=== PATIENT | female | born 1975 | race Caucasian/White ===

== ENCOUNTER 2017-01-18 20:31 | Emergency (ER) | payer SELFPAY ==
[~2017-01-18] VITALS: Ht 165.1 cm; Wt 140.0 kg
[~2017-01-18 20:31] MED LIST: Z.0.NO CURRENT MEDS
[2017-01-18 20:34] VITALS: BP 138/84; PULSE 94; RESP 18; TEMP 98.2; O2SAT 100
[2017-01-18 22:40] VITALS: BP 119/59; PULSE 94; RESP 16; O2SAT 100
[2017-01-18] MEDS ORDERED: KETOROLAC TROMETHAMINE 30 MG/ML (IVP) VIAL IV PUSH ONE (23:15)
--- NOTE | 2017-01-18 23:41 | PD ---
HPI Chief Complaint: Musculoskeletal Complaint Time Seen by Provider: 22:22 Travel History International Travel<30 days: No Contact w/Intl Traveler<30days: No Traveled to known affect area: No History of Present Illness HPI Patient has a lower leg gluteal area pain in her left gluteal area she woke up that way today. She also has some tension in her left trapezius shoulder area. She has had problems with sciatica in the past. 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 She took nothing for the pain it continues worse with movement it's been for about 7 hours duration. No radiation localized to the left gluteal cheek and the left shoulder there not connected [facility] Past Medical History Autoimmune Disease: Yes (AUTOIMMUNE HEPATITIS) Tetanus Vaccination: Unknown Influenza Vaccination: No ?: Not LMP: 01/03/17 Dilation and Curettage (D&C): Yes Tubal Ligation: Yes Past Surgical History Cholecystectomy: Yes Tonsillectomy: Yes Social History Alcohol Use: No Tobacco Use: No Substance Use: No Allergies-Medications (Allergen,Severity, Reaction): Coded Allergies: No Known Allergies (Verified , 02/09/11) Reported Meds & Prescriptions Reported Meds & Active Scripts Active Ibuprofen 800 Mg Tab 800 Mg PO Q6HR PRN Valium (Diazepam) 2 Mg Tab 2 Mg PO TID PRN Review of Systems Except as stated in HPI: all other systems reviewed are Neg Musculoskeletal: Positive: Myalgias Neurologic: Positive: Other (focal pain in the left gluteal area) Physical Exam Narrative GENERAL: Morbidly obese lying flat on the stretcher awake alert SKIN: Warm and dry. HEAD: Atraumatic. Normocephalic. EYES: Pupils equal and round. No scleral icterus. No injection or drainage. ENT: No nasal bleeding or discharge. Mucous membranes pink and moist. NECK: Trachea midline. No JVD. CARDIOVASCULAR: Regular rate and rhythm. RESPIRATORY: No accessory muscle use. Clear to auscultation. Breath sounds equal bilaterally. GASTROINTESTINAL: Abdomen soft, non-tender, nondistended. Hepatic and splenic margins not palpable. MUSCULOSKELETAL: Extremities without clubbing, cyanosis, or edema. No obvious deformities. Patient has sciatic-like distribution in her gluteal left cheek reproducible with palpation NEUROLOGICAL: Awake and alert. No obvious cranial nerve deficits. Motor grossly within normal limits. Five out of 5 muscle strength in the arms and legs. Normal speech. PSYCHIATRIC: Appropriate mood and affect; insight and judgment normal. Data Data Last Documented VS Vital Signs Date Time Temp Pulse Resp B/P (MAP) Pulse Ox O2 Delivery O2 Flow Rate FiO2 01/19/17 00:25 01/18/17 22:40 94 16 100 Room Air 01/18/17 20:34 98.2 Orders Orders Ketorolac Inj (Toradol Inj) (01/18/17 23:15) MDM Medical Decision Making Medical Screen Exam Complete: Yes Emergency Medical Condition: Yes Differential Diagnosis Muscle spasm versus sciatic nerve versus back strain Narrative Course Patient gets much relief from Toradol and goes home with prescription for Valium and Motrin and diagnosis is going to be muscle strain Diagnosis Primary Impression: Sciatica Qualified Codes: M54.30 - Sciatica, unspecified side Patient Instructions: General Instructions Scripts Ibuprofen (Ibuprofen) 800 Mg Tab 800 MG PO Q6HR Y for PAIN, #40 TAB 0 Refills Prov: Abiel Scott MD 01/19/17 Diazepam (Valium) 2 Mg Tab 2 MG PO TID Y for MUSCLE SPASM, #15 TAB 0 Refills Prov: Abiel Scott MD 01/19/17 Disposition: 01 DISCHARGE HOME Condition: Good Abiel Scott MD Jan 18, 2017 23:41
[2017-01-19] MEDS ORDERED: IBUP1TAB7 PO (00:10)
[2017-01-19] MEDS ORDERED: DIAZ2 PO (00:10)
== END 2017-01-19 00:31 | disposition home or self-care (01) ==
LOC: NEPC 20:31
DX: M54.32 Sciatica, left side (principal); K75.4 Autoimmune hepatitis
CPT/HCPCS: 96374; 99284; J1885

== ENCOUNTER 2017-07-02 21:12 | Emergency (ER) | payer OTHER ==
[~2017-07-02] VITALS: Ht 167.6 cm; Wt 140.6 kg
[~2017-07-02 21:12] MED LIST changes: +DIAZ2 PO; +IBUP1TAB7 PO; -Z.0.NO CURRENT MEDS
[2017-07-02 21:28] VITALS: BP 143/66; PULSE 73; RESP 16; TEMP 99.1; O2SAT 98
--- NOTE | 2017-07-02 22:12 | PD ---
HPI Chief Complaint: Fall Time Seen by Provider: 21:50 Travel History International Travel<30 days: No Contact w/Intl Traveler<30days: No Traveled to known affect area: No History of Present Illness HPI Patient is a 41-year-old female who presents the emergency room for evaluation after a fall today. Patient reports that she was working outside, reports that since arriving today, she slipped on wet mulch. Patient reports that she fell forward but broke her fall with her right hand. Patient reports that she has pain to her right upper back as well as her right hand. Reports that she scraped her left knee, patient reports that she was able to ambulate after her accident without difficultly. Patient denies any trauma to her head or neck, denies any loss of consciousness, denies any vision changes. Reports mild headache today - adamantly denies trauma to head. Patient reports, "I don't think anything is broken but I just wanted to get checked out. Patient reports that she is currently not on any anticoagulants or medications. PFSH Past Medical History Autoimmune Disease: Yes (AUTOIMMUNE HEPATITIS) Diminished Hearing: No Tetanus Vaccination: Unknown Influenza Vaccination: No ?: Not LMP: 06/11/17 : 4 Para: 3 Miscarriage: 1 Dilation and Curettage (D&C): Yes Tubal Ligation: Yes Past Surgical History Cholecystectomy: Yes Tonsillectomy: Yes Social History Alcohol Use: Yes (SOCIALLY) Tobacco Use: No Substance Use: No Allergies-Medications (Allergen,Severity, Reaction): Coded Allergies: No Known Allergies (Verified Adverse Reaction, Unknown, 07/02/17) Reported Meds & Prescriptions Reported Meds & Active Scripts Active No Active Prescriptions or Reported Medications Review of Systems General / Constitutional: No: Fever Eyes: No: Visual changes HENT: Positive: Headaches, No: Neck Pain Cardiovascular: No: Chest Pain or Discomfort Respiratory: No: Shortness of Breath Gastrointestinal: No: Abdominal Pain Genitourinary: No: Dysuria Musculoskeletal: Positive: Pain (upper back pain) Skin: No Rash Neurologic: No: Weakness Psychiatric: No: Depression Endocrine: No: Polydipsia Hematologic/Lymphatic: No: Easy Bruising Physical Exam Narrative GENERAL: NAD SKIN: Focused skin assessment warm/dry. HEAD: Atraumatic. Normocephalic. EYES: Pupils equal and round. No scleral icterus. No injection or drainage. ENT: No nasal bleeding or discharge. Mucous membranes pink and moist. NECK: Trachea midline. No JVD. No midline tenderness CARDIOVASCULAR: Regular rate and rhythm. No murmur appreciated. RESPIRATORY: No accessory muscle use. Clear to auscultation. Breath sounds equal bilaterally. GASTROINTESTINAL: Abdomen soft, non-tender, nondistended. Hepatic and splenic margins not palpable. MUSCULOSKELETAL: No obvious deformities. No clubbing. No cyanosis. No edema. No midline thoracic or lumbar tenderness, patient with right upper thoracic paraspinal tenderness. RUE: patient with normal ROM to right shoulder/elbow/ wrist, no tenderness to digits of fingers, there is no scaphoid tenderness. Pulses intact, neurovascular intact LUE: normal exam LLE: patient with normal rom to left hip/knee/ankle, she does have an abrasion to her left knee RLE: normal exam NEUROLOGICAL: Awake and alert. No obvious cranial nerve deficits. Motor grossly within normal limits. Normal speech. CN 2-12 grossly intact with no neurological deficits, patient ambulating in the ER with normal gait PSYCHIATRIC: Appropriate mood and affect; insight and judgment normal. Data Data Last Documented VS Vital Signs Date Time Temp Pulse Resp B/P (MAP) Pulse Ox O2 Delivery O2 Flow Rate FiO2 07/02/17 21:28 99.1 73 16 143/66 (91) 98 [facility] Medical Decision Making Medical Screen Exam Complete: Yes Emergency Medical Condition: Yes Medical Record Reviewed: Yes Interpretation(s) Vital Signs Date Time Temp Pulse Resp B/P (MAP) Pulse Ox O2 Delivery O2 Flow Rate FiO2 07/02/17 21:28 99.1 73 16 143/66 (91) 98 Differential Diagnosis sprain, mechanical fall Narrative Course Patient is a 41-year-old female who presents the emergency room after mechanical slip and fall while at work today. Patient with no obvious injuries in the emergency room, patient with most likely muscle strain. Neuro exam was performed, patient with no obvious neurological deficits, patient with most likely muscle strain. Signs and symptoms of when to return to the ER was reviewed with patient. She will follow up with her pcp and will return to ER as needed. Diagnosis Primary Impression: Accident due to mechanical fall without injury Qualified Codes: W19.XXXA - Unspecified fall, initial encounter Patient Instructions: General Instructions Departure Forms: Tests/Procedures, Work Release Enter return to work date: Jul 04, 2017 Additional Instructions: Please follow up with your primary care doctor and return to the ER as needed Scripts No Active Prescriptions or Reported Meds Disposition: 01 DISCHARGE HOME Condition: Evie Roberson DO Jul 02, 2017 22:12
[2017-07-02] MEDS ORDERED: IBUPROFEN 600 MG TAB PO ONE (22:15)
== END 2017-07-02 22:17 | disposition home or self-care (01) ==
LOC: PHEFT 21:12
DX: M79.641 Pain in right hand (principal); S80.212A Abrasion, left knee, initial encounter; K75.4 Autoimmune hepatitis; R51 Headache; W01.0XXA Fall on same level from slipping, tripping and stumbling without subsequent striking against object, initial encounter
CPT/HCPCS: 99282

== ENCOUNTER 2017-08-29 01:10 | Emergency (ER) | payer SELFPAY ==
[~2017-08-29] VITALS: Ht 167.6 cm; Wt 138.8 kg
[2017-08-29 01:11] VITALS: BP 134/71; PULSE 63; RESP 18; TEMP 97.4; O2SAT 96
[2017-08-29] MEDS ORDERED: CYCL10TA PO (03:34)
[2017-08-29] MEDS ORDERED: TRAM50TA PO (03:34)
[2017-08-29] MEDS ORDERED: IBUP-232 PO (03:34)
--- NOTE | 2017-08-29 03:36 | PD ---
HPI Chief Complaint: Pain: Acute or Chronic Time Seen by Provider: 03:25 Travel History International Travel<30 days: No Contact w/Intl Traveler<30days: No Traveled to known affect area: No History of Present Illness HPI The patient is a 42-year-old female that complains of back pain below her right scapula for 2 days. The pain is a 10/10 and sharp pain. 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 There is no radiation of the pain. She denies any fever or cough. PFSH Past Medical History Autoimmune Disease: Yes (AUTOIMMUNE HEPATITIS) Diminished Hearing: No Tetanus Vaccination: Unknown Influenza Vaccination: No ?: Not LMP: 07-29-17 : 4 Para: 3 Miscarriage: 1 Dilation and Curettage (D&C): Yes Tubal Ligation: Yes Past Surgical History Cholecystectomy: Yes Tonsillectomy: Yes Social History Alcohol Use: Yes (SOCIALLY) Tobacco Use: No Substance Use: No Allergies-Medications (Allergen,Severity, Reaction): Coded Allergies: No Known Allergies (Verified Adverse Reaction, Unknown, 08/29/17) Reported Meds & Prescriptions Reported Meds & Active Scripts Active No Active Prescriptions or Reported Medications Review of Systems Except as stated in HPI: all other systems reviewed are Neg Physical Exam Narrative GENERAL: The patient is alert, oriented 3 in moderate apparent distress with her right back pain. Her vital signs are normal. SKIN: Focused skin assessment warm/dry. HEAD: Atraumatic. Normocephalic. EYES: Pupils equal and round. No scleral icterus. No injection or drainage. ENT: No nasal bleeding or discharge. Mucous membranes pink and moist. NECK: Trachea midline. No JVD. CARDIOVASCULAR: Regular rate and rhythm. No murmur appreciated. RESPIRATORY: No accessory muscle use. Clear to auscultation. Breath sounds equal bilaterally. GASTROINTESTINAL: Abdomen soft, non-tender, nondistended. Hepatic and splenic margins not palpable. MUSCULOSKELETAL: No obvious deformities. No clubbing. No cyanosis. No edema. The patient has a diffuse area of tenderness about 10 cm in diameter over the musculature below the right scapula. This appears to be of muscle strain. There is no rib tenderness or deformity present. NEUROLOGICAL: Awake and alert. No obvious cranial nerve deficits. Motor grossly within normal limits. Normal speech. PSYCHIATRIC: Appropriate mood and affect; insight and judgment normal. Data Data Last Documented VS Vital Signs Date Time Temp Pulse Resp B/P (MAP) Pulse Ox O2 Delivery O2 Flow Rate FiO2 08/29/17 01:11 97.4 63 18 134/71 (92) 96 MDM Medical Decision Making Medical Screen Exam Complete: Yes Emergency Medical Condition: Yes Medical Record Reviewed: Yes Differential Diagnosis Fasciitis, muscle strain, muscle spasm, fractured rib Narrative Course The patient has a muscle strain the thorax. Impression: Thoracic muscle strain Plan: The patient was given Flexeril, Motrin 600 mg 3 times a day taken regularly and tramadol. Diagnosis Primary Impression: Myofascial pain on right side Additional Instructions: A heating pad, ibuprofen taken regularly 3 times daily to establish I anti- inflammatory levels and the muscle relaxant Flexeril. Rest is also useful. Med/Other Pt SpecificInfo: Prescription(s) given Scripts Cyclobenzaprine (Flexeril) 10 Mg Tab 10 MG PO TID for Muscle Spasm, #30 TAB 0 Refills Prov: Clinton Gabriel MD 08/29/17 Tramadol (Tramadol) 50 Mg Tab 50 MG PO Q6H Y for PAIN, #20 TAB 0 Refills Prov: Clinton Gabriel MD 08/29/17 Ibuprofen (Ibuprofen) 600 Mg Tab 600 MG PO TID, #33 TAB 0 Refills Prov: Clinton Gabriel MD 08/29/17 Disposition: 01 DISCHARGE HOME Condition: Stable Clinton Gabriel MD Aug 29, 2017 03:36
[2017-08-29] MEDS ORDERED: ORPHENADRINE INJ 60 MG/2 ML AMP IM ONE (03:45)
[2017-08-29] MEDS ORDERED: KETOROLAC TROMETHAMINE 60 MG/2 ML (IM) VIAL IM ONE (03:45)
== END 2017-08-29 03:56 | disposition home or self-care (01) ==
LOC: PHED 01:10
DX: M79.1 Myalgia (principal)
CPT/HCPCS: 96372; 99283; J1885; J2360

== ENCOUNTER 2017-08-29 23:40 | Observation (INO) | payer SELFPAY ==
[~2017-08-29] VITALS: Ht 167.6 cm; Wt 137.5 kg
[~2017-08-29 23:40] MED LIST changes: +CYCL10TA PO; -DIAZ2 PO; +IBUP-232 PO; -IBUP1TAB7 PO; +TRAM50TA PO
[2017-08-29 23:47] VITALS: BP 148/68; PULSE 64; RESP 16; TEMP 97.9; O2SAT 100
[2017-08-30] VITALS (9 sets, daily range): BP systolic 106–149; BP diastolic 53–85; PULSE 55–80; RESP 16–20; TEMP 97.8–98.3; O2SAT 98–100
--- NOTE | 2017-08-30 00:49 | PD ---
HPI Chief Complaint: Flank/Kidney Pain Time Seen by Provider: 00:45 Travel History International Travel<30 days: No Contact w/Intl Traveler<30days: No Traveled to known affect area: No History of Present Illness HPI Patient complains of left back and flank pain since Sunday, also complains of pain with urination/dysuria, also has positive frequency/urgency/hematuria rates the flank pain is 10 out of 10, nonradiating . Denies alleviating or aggravating factors. Denies any associated factors such as fever, rash, neck pain, meningismus, headache, nausea vomiting or diarrhea. No known drug allergy Past medical history significant for tonsillectomy, corrective lens use, cholecystectomy, tubal ligation, D&C, autoimmune hepatitis PFSH Past Medical History Medical History: Denies Significant Hx Autoimmune Disease: Yes (AUTOIMMUNE HEPATITIS) Diminished Hearing: No Immunizations Current: Yes ?: Not LMP: 07/21/17 : 4 Para: 3 Miscarriage: 1 Dilation and Curettage (D&C): Yes Tubal Ligation: Yes Past Surgical History Cholecystectomy: Yes Tonsillectomy: Yes Social History Alcohol Use: Yes (SOCIALLY) Tobacco Use: No Substance Use: No Allergies-Medications (Allergen,Severity, Reaction): Coded Allergies: No Known Allergies (Verified Adverse Reaction, Unknown, 08/29/17) Reported Meds & Prescriptions Reported Meds & Active Scripts Active Flexeril (Cyclobenzaprine HCl) 10 Mg Tab 10 Mg PO TID Tramadol (Tramadol HCl) 50 Mg Tab 50 Mg PO Q6H PRN Ibuprofen 600 Mg Tab 600 Mg PO TID Review of Systems General / Constitutional: No: Fever Eyes: No: Visual changes HENT: No: Headaches Cardiovascular: No: Chest Pain or Discomfort Respiratory: No: Shortness of Breath Gastrointestinal: No: Abdominal Pain Genitourinary: Positive: Frequency, Dysuria, Flank Pain Musculoskeletal: No: Pain Skin: No Rash Neurologic: No: Weakness Psychiatric: No: Depression Endocrine: No: Polydipsia Hematologic/Lymphatic: No: Easy Bruising Physical Exam Narrative GENERAL: SKIN: Warm and dry. HEAD: Atraumatic. Normocephalic. EYES: Pupils equal and round. No scleral icterus. No injection or drainage. ENT: No nasal bleeding or discharge. Mucous membranes pink and moist. NECK: Trachea midline. No JVD. CARDIOVASCULAR: Regular rate and rhythm. RESPIRATORY: No accessory muscle use. Clear to auscultation. Breath sounds equal bilaterally. GASTROINTESTINAL: Abdomen soft, non-tender, nondistended. Left lower quadrant tenderness to palpation MUSCULOSKELETAL: Extremities without clubbing, cyanosis, or edema. No obvious deformities. NEUROLOGICAL: Awake and alert. No obvious cranial nerve deficits. Motor grossly within normal limits. Five out of 5 muscle strength in the arms and legs. Normal speech. PSYCHIATRIC: Appropriate mood and affect; insight and judgment normal. Data Data Last Documented VS Vital Signs Date Time Temp Pulse Resp B/P (MAP) Pulse Ox O2 Delivery O2 Flow Rate FiO2 08/30/17 02:26 16 08/30/17 00:33 80 133/68 (89) 98 Room Air 08/29/17 23:47 97.9 Orders Orders Complete Blood Count With Diff (08/30/17 01:09) Comprehensive Metabolic Panel (08/30/17 01:09) Urinalysis - C+S If Indicated (08/30/17 01:09) Ed Urine Pregnancytest Poc (08/30/17 01:09) Ct Abd/Pel W/O Iv Contrast (08/30/17 01:09) Ecg Monitoring (08/30/17 01:09) Iv Access Insert/Monitor (08/30/17 01:09) Ketorolac Inj (Toradol Inj) (08/30/17 01:15) Sodium Chloride 0.9% Flush (Ns Flush) (08/30/17 01:15) Sodium Chlor 0.9% 1000 Ml Inj (Ns 1000 M (08/30/17 01:09) Lipase (08/30/17 01:09) Urine Culture (08/30/17 01:45) Morphine Inj (Morphine Inj) (08/30/17 02:45) Ceftriaxone Inj (Rocephin Inj) (08/30/17 02:45) Place In Observation (08/30/17 ) Vital Signs (Adult) Q4H (08/30/17 03:01) Activity Oob Ad Genesis (08/30/17 03:01) Intake + Output MAGDIEL.QSHIFT (08/30/17 03:01) Diet Heart Healthy (08/30/17 Breakfast) Sodium Chlor 0.9% 1000 Ml Inj (Ns 1000 M (08/30/17 03:01) Sodium Chloride 0.9% Flush (Ns Flush) (08/30/17 03:15) Sodium Chloride 0.9% Flush (Ns Flush) (08/30/17 09:00) Acetaminophen (Tylenol) (08/30/17 03:15) Basic Metabolic Panel (Bmp) (08/31/17 06:00) Complete Blood Count With Diff (08/31/17 06:00) Case Management Consult (08/30/17 03:01) Scd Bilateral/Knee High MAGDIEL.BID (08/30/17 03:01) Naloxone Inj (Narcan Inj) (08/30/17 03:15) Ceftriaxone Inj (Rocephin Inj) (08/31/17 03:00) Morphine Inj (Morphine Inj) (08/30/17 03:15) Consult Medical Oncology (08/30/17 ) Admit Order (Ed Use Only) (08/30/17 03:17) Iron/Tibc Profile (08/30/17 01:20) Labs Laboratory Tests Test 08/30/17 01:20 08/30/17 01:45 White Blood Count 7.5 TH/MM3 Red Blood Count 4.38 MIL/MM3 Hemoglobin 8.8 GM/DL Hematocrit 28.8 % Mean Corpuscular Volume 65.8 FL Mean Corpuscular Hemoglobin 20.2 PG Mean Corpuscular Hemoglobin Concent 30.7 % Red Cell Distribution Width 20.6 % Platelet Count 321 TH/MM3 Mean Platelet Volume 7.1 FL Neutrophils (%) (Auto) 65.4 % Lymphocytes (%) (Auto) 23.9 % Monocytes (%) (Auto) 6.7 % Eosinophils (%) (Auto) 3.7 % Basophils (%) (Auto) 0.3 % Neutrophils # (Auto) 4.9 TH/MM3 Lymphocytes # (Auto) 1.8 TH/MM3 Monocytes # (Auto) 0.5 TH/MM3 Eosinophils # (Auto) 0.3 TH/MM3 Basophils # (Auto) 0.0 TH/MM3 CBC Comment DIFF FINAL Differential Comment Blood Urea Nitrogen 12 MG/DL Creatinine 0.53 MG/DL Random Glucose 102 MG/DL Total Protein 6.5 GM/DL Albumin 3.1 GM/DL Calcium Level 8.4 MG/DL Alkaline Phosphatase 85 U/L Aspartate Amino Transf (AST/SGOT) 10 U/L Alanine Aminotransferase (ALT/SGPT) 11 U/L Total Bilirubin 0.2 MG/DL Sodium Level 142 MEQ/L Potassium Level 3.7 MEQ/L Chloride Level 108 MEQ/L Carbon Dioxide Level 26.5 MEQ/L Anion Gap 8 MEQ/L Estimat Glomerular Filtration Rate 127 ML/MIN Iron Level 22 MCG/DL Total Iron Binding Capacity 339 MCG/DL Percent Iron Saturation 6.5 % Ferritin 7 NG/ML Lipase 89 U/L Vitamin B12 Level 237 PG/ML Urine Color YELLOW Urine Turbidity HAZY Urine pH 6.0 Urine Specific [place] 1.020 Urine Protein NEG mg/dL Urine Glucose (UA) NEG mg/dL Urine Ketones NEG mg/dL Urine Occult Blood SMALL Urine Nitrite NEG Urine Bilirubin NEG Urine Urobilinogen LESS THAN 2 mg/dL Urine Leukocyte Esterase SMALL Urine RBC 1 /hpf Urine WBC 8 /hpf Urine Squamous Epithelial Cells 7 /hpf Urine Bacteria FEW /hpf Urine Mucus FEW /lpf Microscopic Urinalysis Comment CULTURE INDICATED MDM Medical Decision Making Medical Screen Exam Complete: Yes Emergency Medical Condition: Yes Medical Record Reviewed: Yes Differential Diagnosis Pyelonephritis versus UTI versus a sending cystitis versus ureterolithiasis Narrative Course CBC shows no leukocytosis, no left shift, platelet count 321,000, anemia of 8.8/ 28.8 microcytic UA significant for UTI Electrolytes are all within normal limits, normal kidney liver and pancreatic functions. CT abdomen and pelvis read by radiologist as a 8.8 x 7.8 cm multiloculated cystic mass that he believes is arising along the left ovary with a differential including ovarian cystadenoma. There is also a small stone on the lower pole of the left kidney, status post cholecystectomy otherwise unremarkable CT abdomen and pelvis patient made aware of the possible malignancy and the need for admission. Diagnosis Primary Impression: UTI Additional Impressions: Suspicious left ovarian mass Anemia Admitting Information Admitting Physician Requests: Observation Scripts Ferrous Sulfate (Ferrous Sulfate) 325 Mg (65 Mg Iron) Tablet 325 MG PO BIDPC for Nutritional Supplement, #60 TAB 0 Refills Prov: Judy Branham MD 08/31/17 Ciprofloxacin (Cipro) 500 Mg Tab 500 MG PO BID for Infection for 6 Days, #12 TAB 0 Refills Prov: Judy Branham MD 08/31/17 Hydrocodone-Acetaminophen ([place]) 5 Mg-325 Mg Tab 1 TAB PO Q6H Y for PAIN, #12 TAB 0 Refills Prov: Judy Branham MD 08/31/17 Elmer Castillo MD Aug 30, 2017 00:49
[2017-08-30] MEDS ORDERED: SODIUM CHLOR 0.9% 1000 ML INJ 1,000 ML IV ONE (01:09)
[2017-08-30] MEDS ORDERED: SODIUM CHLORIDE 0.9% FLUSH 10 ML FLUSH IVF PRN (01:15)
[2017-08-30] MEDS ORDERED: KETOROLAC TROMETHAMINE 30 MG/ML (IVP) VIAL IV PUSH ONE (01:15)
[2017-08-30 01:27] LABS: AUTOMATED NEUTROPHIL # 4.9 TH/MM3 (1.8-7.7); BASOPHIL % 0.3 % (0.0-2.0); EOSINOPHIL # 0.3 TH/MM3 (0-0.4); EOSINOPHIL % 3.7 % (0.0-4.0); HEMATOCRIT 28.8 % (35.0-46.0); HEMOGLOBIN 8.8 GM/DL (11.6-15.3); LYMPH % 23.9 % (9.0-44.0); LYMPHOCYTE # 1.8 TH/MM3 (1.0-4.8); MEAN CELL VOLUME 65.8 FL (80.0-100.0); MEAN CORPUSCULAR HEMOGLOBIN 20.2 PG (27.0-34.0); MEAN CORPUSCULAR HGB CONC 30.7 % (32.0-36.0); MEAN PLATELET VOLUME 7.1 FL (7.0-11.0); MONO % 6.7 % (0.0-8.0); MONOCYTE # 0.5 TH/MM3 (0-0.9); NEUT % 65.4 % (16.0-70.0); PLATELET COUNT 321 TH/MM3 (150-450); RED BLOOD COUNT 4.38 MIL/MM3 (4.00-5.30); RED CELL DISTRIBUTION WIDTH 20.6 % (11.6-17.2); WHITE BLOOD COUNT 7.5 TH/MM3 (4.0-11.0)
--- NOTE | 2017-08-30 01:59 | RADRPT ---
EXAM DATE: 08/30/2017 1:52 AM EDT AGE/SEX: 42 years / Female INDICATIONS: Left flank pain. CLINICAL DATA: This is the patient's initial encounter. Patient reports that signs and symptoms have been present for 1 day and indicates a pain score of 3/10. MEDICAL/SURGICAL HISTORY: None. Tubal ligation. Cholecystectomy. RADIATION DOSE: 32.27 CTDI (mGy) COMPARISON: No prior exams available for comparison. TECHNIQUE: Multiple contiguous axial images were obtained through the abdomen. Images were obtained using multiple row detector helical technique. Using automated exposure control and adjustment of the mA and/or kV according to patient size, radiation dose was kept as low as reasonably achievable to o btain optimal diagnostic quality images. DICOM format image data is available electronically for rev iew and comparison. FINDINGS: Lower Lungs: The visualized lower lungs are clear. Liver: The liver has a homogeneous density without space-occupying lesion. There is no dilation of th e biliary tree. Cholecystectomy clips Spleen: Homogeneous density without enlargement. Pancreas: Unremarkable without mass or calcification. Kidneys: Normal in size and shape. No evidence of mass or hydronephrosis. Small calcification lower pole left kidney. Adrenal Glands: Unremarkable. Aorta: The aorta and proximal iliac vessels are grossly unremarkable without aneurysmal dilation. Bowel/Mesentery: The bowel loops are grossly unremarkable. The cecum and sigmoid colon have a normal configuration. Abdominal Wall: Intact. Retroperitoneum: No evidence of adenopathy in the retrocrural, para-aortic, or deep pelvic regions. Bladder: Contours are smooth. Reproductive Organs: 8.8 x 7.8 cm multiloculated cystic mass I believe arising along the left ovary. Differential includes ovarian cystadenoma. Inguinal: The inguinal region is unremarkable without evidence of adenopathy. Bony Structures: Unremarkable. CONCLUSION: 1. 8.8 x 7.8 cm multiloculated cystic mass in the anterior (I suspect arising from the left. Potenti al includes ovarian cystadenoma versus cystadenocarcinoma. 2. Small stone lower pole left kidney. 3. Status post cholecystectomy otherwise unremarkable CT abdomen and pelvis Electronically signed by: Abhishek Valencia MD 08/30/2017 1:57 AM EDT
[2017-08-30 02:00] LABS: ALBUMIN 3.1 GM/DL (3.4-5.0); ALT (GPT) 11 U/L (10-53); AST (GOT) 10 U/L (15-37); BICARBONATE 26.5 MEQ/L (21.0-32.0); BLOOD UREA NITROGEN 12 MG/DL (7-18); CALCIUM 8.4 MG/DL (8.5-10.1); CHLORIDE 108 MEQ/L (98-107); CREATININE 0.53 MG/DL (0.50-1.00); GLOMERULAR FILTRATION RATE 127 ML/MIN (>89); GLUCOSE,RANDOM 102 MG/DL (74-106); SODIUM (NA) 142 MEQ/L (136-145)
[2017-08-30 02:02] LABS: ALKALINE PHOSPHATASE 85 U/L (45-117); TOTAL BILIRUBIN ADULT 0.2 MG/DL (0.2-1.0); TOTAL PROTEIN 6.5 GM/DL (6.4-8.2)
[2017-08-30 02:04] LABS: BACTERIA, URINE FEW /hpf; BILIRUBIN, URINE NEG (NEG); BLOOD, URINE SMALL (NEG); GLUCOSE,URINE NEG (NEG); KETONE, URINE NEG (NEG); MUCUS URINE FEW /lpf (OCC); NITRITE,URINE NEG (NEG); SQUAMOUS EPITHELIAL CELL URINE 7 /hpf (0-5); URINE COLOR YELLOW (YELLW/STRAW); URINE LEUKOCYTE ESTERASE SMALL (NEG)
[2017-08-30] MEDS ORDERED: MORPHINE SULFATE 4 MG/ML INJ IV PUSH ONE (02:45)
[2017-08-30] MEDS ORDERED: cefTRIAXone INJ 1,000 MG in SODIUM CHLORIDE 0.9% INJ 100 ML IV ONE (02:45)
[2017-08-30] MEDS: SODIUM CHLOR 0.9% 1000 ML INJ 1,000 ML IV SCH ×2 (03:01→13:06)
[2017-08-30] MEDS ORDERED: SODIUM CHLORIDE 0.9% FLUSH 10 ML FLUSH IV FLUSH PRN (03:15)
[2017-08-30] MEDS ORDERED: MORPHINE SULFATE 4 MG/ML INJ IV PUSH PRN (03:15)
[2017-08-30] MEDS ORDERED: NALOXONE HCL 0.4 MG/ML AMP IV PUSH PRN (03:15)
--- NOTE | 2017-08-30 03:55 | HHI.HP ---
[facility] No Primary Care Physician Admission Diagnosis LEFT OVARIAN MASS, UTI Diagnoses: Travel History International Travel<30 Days: No Contact w/Intl Traveler <30 Da: No Traveled to Known Affected Are: No History of Present Illness 42-year-old female with no significant past medical history presents the emergency department for evaluation of right-sided flank pain that radiates around to her chest. She denies any dysuria including pain with urination and urinary frequency. No fever/chills. No chest pain or shortness of breath. No abdominal pain. No nausea/vomiting/diarrhea. Review of Systems Except as stated in HPI: all other systems reviewed are Neg Past Family Social History Past Medical History None Past Surgical History Tonsillectomy Cholecystectomy D&C Bilateral tubal ligation Reported Medications Reported Meds & Active Scripts Active Flexeril (Cyclobenzaprine HCl) 10 Mg Tab 10 Mg PO TID Tramadol (Tramadol HCl) 50 Mg Tab 50 Mg PO Q6H PRN Ibuprofen 600 Mg Tab 600 Mg PO TID Allergies: Coded Allergies: No Known Allergies (Verified Adverse Reaction, Unknown, 08/29/17) Family History Father with diabetes mellitus Social History Occasional alcohol. Denies tobacco and illicit drugs Physical Exam Vital Signs Vital Signs Date Time Temp Pulse Resp B/P (MAP) Pulse Ox O2 Delivery O2 Flow Rate FiO2 08/30/17 02:26 16 08/30/17 00:33 80 20 133/68 (89) 98 Room Air 08/29/17 23:47 97.9 64 16 148/68 (94) 100 Physical Exam GENERAL: Obese, female lying in bed SKIN: No rashes, ecchymoses or lesions. Cool and dry. HEAD: Atraumatic. Normocephalic. No temporal or scalp tenderness. EYES: Pupils equal round and reactive. Extraocular motions intact. No scleral icterus. No injection or drainage. ENT: Nose without bleeding, purulent drainage or septal hematoma. Throat without erythema, tonsillar hypertrophy or exudate. Uvula midline. Airway patent. NECK: Trachea midline. No JVD or lymphadenopathy. Supple, nontender, no meningeal signs. CARDIOVASCULAR: Regular rate and rhythm without murmurs, gallops, or rubs. RESPIRATORY: Clear to auscultation. Breath sounds equal bilaterally. No wheezes , rales, or rhonchi. GASTROINTESTINAL: Abdomen soft, non-tender, nondistended. No hepato-splenomegaly , or palpable masses. No guarding. : No CVA tenderness MUSCULOSKELETAL: Extremities without clubbing, cyanosis, or edema. No joint tenderness, effusion, or edema noted. No calf tenderness. NEUROLOGICAL: Awake and alert. Cranial nerves II through XII intact. Motor and sensory grossly within normal limits. Normal speech. Laboratory Laboratory Tests Test 08/30/17 01:20 08/30/17 01:45 White Blood Count 7.5 Red Blood Count 4.38 Hemoglobin 8.8 Hematocrit 28.8 Mean Corpuscular Volume 65.8 Mean Corpuscular Hemoglobin 20.2 Mean Corpuscular Hemoglobin Concent 30.7 Red Cell Distribution Width 20.6 Platelet Count 321 Mean Platelet Volume 7.1 Neutrophils (%) (Auto) 65.4 Lymphocytes (%) (Auto) 23.9 Monocytes (%) (Auto) 6.7 Eosinophils (%) (Auto) 3.7 Basophils (%) (Auto) 0.3 Neutrophils # (Auto) 4.9 Lymphocytes # (Auto) 1.8 Monocytes # (Auto) 0.5 Eosinophils # (Auto) 0.3 Basophils # (Auto) 0.0 CBC Comment DIFF FINAL Differential Comment Blood Urea Nitrogen 12 Creatinine 0.53 Random Glucose 102 Total Protein 6.5 Albumin 3.1 Calcium Level 8.4 Alkaline Phosphatase 85 Aspartate Amino Transf (AST/SGOT) 10 Alanine Aminotransferase (ALT/SGPT) 11 Total Bilirubin 0.2 Sodium Level 142 Potassium Level 3.7 Chloride Level 108 Carbon Dioxide Level 26.5 Anion Gap 8 Estimat Glomerular Filtration Rate 127 Lipase 89 Urine Color YELLOW Urine Turbidity HAZY Urine pH 6.0 Urine Specific [place] 1.020 Urine Protein NEG Urine Glucose (UA) NEG Urine Ketones NEG Urine Occult Blood SMALL Urine Nitrite NEG Urine Bilirubin NEG Urine Urobilinogen LESS THAN 2 Urine Leukocyte Esterase SMALL Urine RBC 1 Urine WBC 8 Urine Squamous Epithelial Cells 7 Urine Bacteria FEW Urine Mucus FEW Microscopic Urinalysis Comment CULTURE INDICATED Date/Time Source Procedure Growth Status 08/30/17 01:45 Urine Random Urine Urine Culture Pending Received Result Diagram: 08/30/17 0120 08/30/17 0120 Caprini VTE Risk Assessment Caprini VTE Risk Assessment: Mod/High Risk (score >= 2) Caprini Risk Assessment Model Point Value = 1 Point Value = 2 Point Value = 3 Point Value = 5 Age 41-60 Minor surgery BMI > 25 kg/m2 Swollen legs Varicose veins or History of unexplained or recurrent spontaneous Oral contraceptives or hormone replacement Sepsis (< 1 month) Serious lung disease, including pneumonia (< 1 month) Abnormal pulmonary function Acute myocardial infarction Congestive heart failure (< 1 month) History of inflammatory bowel disease Medical patient at bed rest Age 61-74 Arthroscopic surgery Major open surgery (> 45 min) Laparoscopic surgery (> 45 min) Malignancy Confined to bed (> 72 hours) Immobilizing plaster cast Central venous access Age >= 75 History of VTE Family history of VTE Factor V Leiden Prothrombin [id number] Lupus anticoagulant Anticardiolipin antibodies Elevated serum homocysteine Heparin-induced thrombocytopenia Other congenital or acquired thrombophilia Stroke (< 1 month) Elective arthroplasty Hip, pelvis, or leg fracture Acute spinal cord injury (< 1 month) Prophylaxis Regimen Total Risk Factor Score Risk Level Prophylaxis Regimen 0-1 Low Early ambulation 2 Moderate Order ONE of the following: *Sequential Compression Device (SCD) *Heparin 5000 units SQ BID 3-4 Higher Order ONE of the following medications: *Heparin 5000 units SQ TID *Enoxaparin/Lovenox 40 mg SQ daily (WT < 150 kg, CrCl > 30 mL/min) *Enoxaparin/Lovenox 30 mg SQ daily (WT < 150 kg, CrCl > 10-29 mL/min) *Enoxaparin/Lovenox 30 mg SQ BID (WT < 150 kg, CrCl > 30 mL/min) AND/OR *Sequential Compression Device (SCD) 5 or more Highest Order ONE of the following medications: *Heparin 5000 units SQ TID (Preferred with Epidurals) *Enoxaparin/Lovenox 40 mg SQ daily (WT < 150 kg, CrCl > 30 mL/min) *Enoxaparin/Lovenox 30 mg SQ daily (WT < 150 kg, CrCl > 10-29 mL/min) *Enoxaparin/Lovenox 30 mg SQ BID (WT < 150 kg, CrCl > 30 mL/min) AND *Sequential Compression Device (SCD) Assessment and Plan Assessment and Plan Assessment/plan: 1. Pelvic mass CT of the abdomen and pelvis significant for an 8 x 7 cm multiloculated cystic mass likely arising from the left ovary Differential diagnosis includes ovarian cystadenoma versus cystadenocarcinoma Medical oncology consulted, appreciate recommendations Case management consulted as patient has no insurance and will need close follow -up 2. Urinary tract infection UA consistent with UTI Urine culture pending Rocephin 3. Anemia Unclear etiology Monitor CBC Iron studies pending FEN Heart healthy diet Electrolytes: Monitor and replete as needed Heparin Evie Dougherty MD Aug 30, 2017 03:55
[2017-08-30 04:07] LABS: % SATURATION IRON PROFILE 6.5 % (20-50); IRON (FE) 22 MCG/DL (50-170); TOTAL IRON BINDING CAPACITY 339 MCG/DL (250-450)
[2017-08-30] MEDS: HEPARIN SODIUM - SQ 10,000 UNITS/ML VIAL SQ SCH ×3 (06:00→21:56)
[2017-08-30] MEDS: MORPHINE SULFATE 4 MG/ML INJ IV PUSH PRN ×5 (06:16→23:55)
[2017-08-30] MEDS: ACETAMINOPHEN 325 MG TAB PO PRN ×2 (06:17→17:21)
[2017-08-30] MEDS: SODIUM CHLORIDE 0.9% FLUSH 10 ML FLUSH IV FLUSH SCH ×2 (08:31→20:11)
--- NOTE | 2017-08-30 14:01 | HHI.PR ---
Addendum to Inpatient Note Addendum Reason: Additional Documentation Additional Information Pt reports her own mother has a hx of thyroid CA. Pt says currently she is pain free. Awaiting oncology consultation. sitting up in bed, NAD. ordering transvaginal US for better picture of left ovarian mass. Ordering gynecology consult. Ordering venofer. Jorge Leon MD Aug 30, 2017 14:01
[2017-08-30] MEDS: IRON SUCROSE INJ 100 MG in SODIUM CHLORIDE 0.9% INJ 100 ML IV SCH (17:15)
--- NOTE | 2017-08-30 18:15 | MB ---
cc: Lesli Holland MD,Evie Flores MD DATE: 08/30/2017 REFERRING PHYSICIAN: Dr. Evie Dougherty. CHIEF COMPLAINT: Dr. Dougherty requested consultation for Rosibel Sanchez regarding iron deficiency anemia associated with a multiloculated cystic mass in the anterior left ovary. HISTORY OF PRESENT ILLNESS: Ms. Sanchez is a 42-year-old woman previously from [place]. She has 2 adult children, ages 19 and 24 and a 16-year-old living with the boys father in [place]. She is down here living with her best friend and her best friend's daughter. She has a boyfriend in the area. She is now a resident of [facility]. She has a history of menorrhagia over the last 3 years. She described menses lasting 7-8 days. Her last menses began on 08/21/2017 and ended 08/29/2017. Her heaviest days are approximately 4 days where she is using a pad and a tampon together. She denies any history of bleeding disorder. She denies any other bleeding, nosebleeds, gum bleeding, or bruising. She has no family history of bleeding. She presented to the emergency room on 08/30/2017 with left back and flank pain. This is temporally related to her menses. She denies any fevers, chills or night sweats. She denies any headaches. She was found to have significant anemia, with hemoglobin 8.8. Her previous hemoglobin from 2010 was 12.1. She had a microcytic anemia. White cell count and platelet count are normal. Her renal function is normal. Iron studies were performed that are consistent with iron deficiency with a percent saturation of 6.5. The liver functions were normal. Because of the back and flank pain, imaging study was performed. CT scan of the abdomen and pelvis that showed an 8.8 x 7.8 cm multiloculated cystic mass in the anterior. There is consideration for ovarian cyst adenoma versus cyst adenocarcinoma. She has a small renal stone on the left. Otherwise, a CT scan is unremarkable. Because of the left ovarian mass, hematology/oncology is consulted. [facility] has been consulted as well to evaluate for the menorrhagia. Vaginal ultrasound has been requested. In light of her iron deficiency, she is being treated with parenteral iron therapy at the time of the consultation. She was tolerating it well. She does not have any insurance at present. She has not seen a [facility] doctor for many years. PAST MEDICAL HISTORY: 1. Left ovarian cystic mass. 2. Microcytic anemia. 3. Iron deficiency. 4. Obesity. PAST SURGICAL HISTORY: 1. Tonsillectomy. 2. Cholecystectomy. 3. D and C procedure. 4. Bilateral tubal ligation. FAMILY HISTORY: Father had diabetes. Mother had thyroid cancer. She does not speak to her mother at present. SOCIAL HISTORY: She lives with her best friend. She denies any tobacco, alcohol or illicit drug use. ALLERGIES: NO KNOWN DRUG ALLERGIES. CURRENT MEDICATIONS: Ceftriaxone, iron sucrose, morphine sulfate p.r.n., heparin, acetaminophen. PHYSICAL EXAMINATION: VITAL SIGNS: Temperature 98.0, heart rate 76, respiratory rate 16, blood pressure 120/71, saturation 98%. GENERAL: Ms. Sanchez is a well-developed, obese young woman, who looks her stated age. HEENT: Pupils are round, reactive to light and accommodation. Oropharynx is clear. NECK: Supple. LUNGS: Clear to auscultation. CARDIOVASCULAR: Reveals a normal rate and rhythm. ABDOMEN: Large but benign. LOWER EXTREMITIES: With no edema. NEUROLOGIC: Nonfocal. LABORATORY DATA: As described above. IMAGING STUDIES: As described above. ASSESSMENT AND PLAN: Ms. Sanchez is a 42-year-old woman with menorrhagia, presenting with abdominal pain, findings of a left ovarian multiloculated cystic mass. This is concerning for an ovarian cystadenoma versus cyst adenocarcinoma. We discussed the risks and benefits of biopsy to determine the etiology of the above. Pending result of underlying malignancy, she will be referred to Gynecologic Oncology. There are no other signs of disease. In the meantime [facility] [facility] Oncology is consulted for menorrhagia. She has evidence of iron deficiency. A ferritin will be checked. I concur with parenteral iron therapy. There is no other family history of cancer other than a mother with thyroid cancer. There is no other information regarding mother's malignancy. She is offered followup at [facility] once discharged. Anticipate, she will be discharged after the CT-guided biopsy to review the pathology once it is available next week. I will give her information regarding followup and new patient referral number. Her CA-125 will be checked. Beta hCG will be checked. It is unlikely that she is , given that she just completed her menses. Stool Hemoccult will be performed to rule out gastrointestinal loss of iron, although this seems unlikely. The source of iron is suspected from the menorrhagia. She read inaccurately that ibuprofen helps with menorrhagia. She has been taking ibuprofen with her cycles. This likely contributes to the loss of blood from her menses. She will be offered a proton pump inhibitor given her chronic use of ibuprofen. MD ANTELMO Damian/KRISTAL , 05:24 PM , 06:13 PM
[2017-08-30] MEDS: PANTOPRAZOLE SOD 20 MG DELAYED RELEASE TAB PO SCH (18:45)
--- NOTE | 2017-08-30 20:30 | PD.CONS ---
HPI Chief Complaint Upper right back pain radiating to the chest Date Seen: Aug 30, 2017 Time Seen: 20:10 Travel History International Travel<30 Days: No Contact w/Intl Traveler<30Days: No Known Affected Area: No History of Present Illness HPI Patient is a 42-year-old A1 with LMP the end of July presents with right sided back pain in the upper back radiating to the chest, she describes as a sharp stabbing pain is been going on for 4 or 5 days, she denies abdominal pain pelvic pain, abnormal bleeding or discharge, she has had a tubal ligation in the past for control she had a CT scan on admission which shows an 8 x 7 cm cystic mass with a septation in the anterior pelvis she had no idea that that was present. She has had no history of gynecologic problems other than when she lost a at approximately 5 months and had to have a D&C with that. Para: 3 : 4 Last Menstrual Period: August 06, 2017 Miscarriage: 1 History Obstetric History Obstetric History 3 vaginal deliveries at term 1 lost approximately 5 months requiring a D&C Past Surgical History Narrative Surgical D&C Cholecystectomy Social History Alcohol Use: No Tobacco Use: No Substance Abuse: No Allergies-Medications (Allergen,Severity, Reaction): Coded Allergies: No Known Allergies (Verified Adverse Reaction, Unknown, 08/29/17) Home Meds Active Scripts Cyclobenzaprine (Flexeril) 10 Mg Tab, 10 MG PO TID for Muscle Spasm, #30 TAB 0 Refills Prov:Clinton Gabriel MD 08/29/17 Tramadol (Tramadol) 50 Mg Tab, 50 MG PO Q6H Y for PAIN, #20 TAB 0 Refills Prov:Clinton Gabriel MD 08/29/17 Ibuprofen (Ibuprofen) 600 Mg Tab, 600 MG PO TID, #33 TAB 0 Refills Prov:Clinton Gabriel MD 08/29/17 Review of Systems General / Constitutional: No: Fever, Weight Gain, Chills, Other Eyes: No: Diploplia, Blurred Vision, Visual changes, Pain, Photophobia HENT: No: Headaches, Vertigo, Lightheadedness Cardiovascular: No: Irregular Rhythm, Chest Pain or Discomfort, Palpitations, Tachycardia, Syncope, Varicosities, Edema, Cyanosis Respiratory: No: Cough, Short of Breath, Other Gastrointestinal: No: Nausea, Vomiting, Diarrhea Genitourinary: No: Decreased Urinary Output, Oliguria Musculoskeletal: Other, No: Limited ROM, Weakness, Cramping, Edema, Pain Skin: No Rash, No Itching, No Dryness, No Lumps, No Change in Pigmentation, No Change in Nails, No Alopecia, No Lesions Neurologic: No: Weakness, Dizziness, Syncope, Focal Abnormalities, Coordination Problem, Headache, Slurred Speech, Seizures Psychiatric: No: Depression, Suicidal Ideations, Homicidal Ideation Endocrine: No: Heat Intolerance, Cold Intolerance, Polydipsia, Polyuria, Other Physical Exam Vital Signs Date Time Temp Pulse Resp B/P (MAP) Pulse Ox O2 Delivery O2 Flow Rate FiO2 08/30/17 18:21 18 08/30/17 16:00 98.1 69 18 149/85 (106) 99 08/30/17 15:36 18 08/30/17 14:26 98.0 861 16 120/71 (87) 98 08/30/17 13:00 98.1 76 17 130/71 (90) 99 Room Air 08/30/17 11:00 97.9 68 16 124/68 (86) Room Air 08/30/17 09:30 98.0 72 17 108/67 (81) 99 Room Air 08/30/17 07:30 97.8 60 17 118/66 (83) 99 Room Air 08/30/17 07:30 17 08/30/17 07:30 60 17 08/30/17 06:08 55 20 106/53 (70) 100 Room Air 08/30/17 02:26 16 08/30/17 00:33 80 20 133/68 (89) 98 Room Air 08/29/17 23:47 97.9 64 16 148/68 (94) 100 Narrative GENERAL: Well-nourished, obese patient. SKIN: Warm and dry. HEAD: Normocephalic and atraumatic. EYES: No scleral icterus. No injection or drainage. ENT: No nasal drainage noted. Mucous membranes pink. Airway patent. NECK: Supple, trachea midline. No JVD. CARDIOVASCULAR: Regular rate and rhythm without murmurs, gallops, or rubs. RESPIRATORY: Breath sounds equal bilaterally. No accessory muscle use. BREASTS: Bilateral exam showed no masses , no retractions, no nipple discharge. ABDOMEN/GI: Abdomen soft, non-tender, bowel sounds present, no rebound, no guarding : External Genitalia: intact and normal in appearance Cervix: [Ms. anterior and sits low in the vagina-] There is no cervical motion tenderness Uterus is retroflexed palpable in the posterior compartment of the pelvis is slightly enlarged Bimanual exam due to the patient's obesity it is hard to really discern much on that exam however there is a pelvic fullness in the anterior pelvis that is vaguely reminiscent of a cystic mass and there was no pain to palpation of this area EXTREMITIES: No cyanosis or edema. BACK: Nontender without obvious deformity. No CVA tenderness. NEUROLOGICAL: Awake and alert. Motor and sensory grossly within normal limits. Five out of 5 muscle strength in all muscle groups. Normal speech. Data Data Orders Orders Complete Blood Count With Diff (08/30/17 01:09) Comprehensive Metabolic Panel (08/30/17 01:09) Urinalysis - C+S If Indicated (08/30/17 01:09) Ed Urine Pregnancytest Poc (08/30/17 01:09) Ct Abd/Pel W/O Iv Contrast (08/30/17 01:09) Ecg Monitoring (08/30/17 01:09) Iv Access Insert/Monitor (08/30/17 01:09) Ketorolac Inj (Toradol Inj) (08/30/17 01:15) Sodium Chloride 0.9% Flush (Ns Flush) (08/30/17 01:15) Sodium Chlor 0.9% 1000 Ml Inj (Ns 1000 M (08/30/17 01:09) Lipase (08/30/17 01:09) Urine Culture (08/30/17 01:45) Morphine Inj (Morphine Inj) (08/30/17 02:45) Ceftriaxone Inj (Rocephin Inj) (08/30/17 02:45) Place In Observation (08/30/17 ) Vital Signs (Adult) Q4H (08/30/17 03:01) Activity Oob Ad Genesis (08/30/17 03:01) Intake + Output MAGDIEL.QSHIFT (08/30/17 03:01) Diet Heart Healthy (08/30/17 Breakfast) Sodium Chlor 0.9% 1000 Ml Inj (Ns 1000 M (08/30/17 03:01) Sodium Chloride 0.9% Flush (Ns Flush) (08/30/17 03:15) Sodium Chloride 0.9% Flush (Ns Flush) (08/30/17 09:00) Acetaminophen (Tylenol) (08/30/17 03:15) Basic Metabolic Panel (Bmp) (08/31/17 06:00) Complete Blood Count With Diff (08/31/17 06:00) Case Management Consult (08/30/17 03:01) Scd Bilateral/Knee High MAGDIEL.BID (08/30/17 03:01) Naloxone Inj (Narcan Inj) (08/30/17 03:15) Ceftriaxone Inj (Rocephin Inj) (08/31/17 03:00) Morphine Inj (Morphine Inj) (08/30/17 03:15) Consult Medical Oncology (08/30/17 ) Admit Order (Ed Use Only) (08/30/17 03:17) Morphine Inj (Morphine Inj) (08/30/17 06:15) Heparin Inj (Heparin Inj) (08/30/17 06:00) Iron/Tibc Profile (08/30/17 01:20) (Hub Use Only)Inp Phy Cons/Ref (08/30/17 ) Physician Name Changes (08/30/17 ) Iron Sucrose Inj (Venofer Inj) (08/30/17 16:00) Us Pelvis Comp W Transvaginal (08/30/17 ) Consult Gynecology (08/30/17 ) (Hub Use Only)In Phy Cons/Ref (08/30/17 ) Ferritin (08/30/17 16:55) Invasive Rad Dept Consult (08/31/17 06:00) Beta Hcg (Quant/Titer) (08/31/17 06:00) Cancer Antigen 125 (08/31/17 06:00) Pantoprazole (Protonix) (08/30/17 17:30) Occult Blood (Hemoccult) Stool (08/30/17 17:24) Specimen To Be Collected PRN (08/30/17 17:24) Vitamin B12 (08/30/17 17:24) Labs CA 125 pending Laboratory Tests Test 08/30/17 01:20 08/30/17 01:45 White Blood Count 7.5 Red Blood Count 4.38 Hemoglobin 8.8 Hematocrit 28.8 Mean Corpuscular Volume 65.8 Mean Corpuscular Hemoglobin 20.2 Mean Corpuscular Hemoglobin Concent 30.7 Red Cell Distribution Width 20.6 Platelet Count 321 Mean Platelet Volume 7.1 Neutrophils (%) (Auto) 65.4 Lymphocytes (%) (Auto) 23.9 Monocytes (%) (Auto) 6.7 Eosinophils (%) (Auto) 3.7 Basophils (%) (Auto) 0.3 Neutrophils # (Auto) 4.9 Lymphocytes # (Auto) 1.8 Monocytes # (Auto) 0.5 Eosinophils # (Auto) 0.3 Basophils # (Auto) 0.0 CBC Comment DIFF FINAL Differential Comment Blood Urea Nitrogen 12 Creatinine 0.53 Random Glucose 102 Total Protein 6.5 Albumin 3.1 Calcium Level 8.4 Alkaline Phosphatase 85 Aspartate Amino Transf (AST/SGOT) 10 Alanine Aminotransferase (ALT/SGPT) 11 Total Bilirubin 0.2 Sodium Level 142 Potassium Level 3.7 Chloride Level 108 Carbon Dioxide Level 26.5 Anion Gap 8 Estimat Glomerular Filtration Rate 127 Iron Level 22 Total Iron Binding Capacity 339 Percent Iron Saturation 6.5 Ferritin 7 Lipase 89 Vitamin B12 Level 237 Urine Color YELLOW Urine Turbidity HAZY Urine pH 6.0 Urine Specific [place] 1.020 Urine Protein NEG Urine Glucose (UA) NEG Urine Ketones NEG Urine Occult Blood SMALL Urine Nitrite NEG Urine Bilirubin NEG Urine Urobilinogen LESS THAN 2 Urine Leukocyte Esterase SMALL Urine RBC 1 Urine WBC 8 Urine Squamous Epithelial Cells 7 Urine Bacteria FEW Urine Mucus FEW Microscopic Urinalysis Comment CULTURE INDICATED Date/Time Source Procedure Growth Status 08/30/17 01:45 Urine Random Urine Urine Culture Pending Received MDM Interpretation(s) 42-year-old white female A1 who presents with right sided back pain that is sharp in nature last 4- 5 days , and with CT scan on admission showing a 8 x 7 cm cystic mass in the anterior pelvis that appears to have one septation through it, CA 125 is pending, remaining lab within normal limits, CT scan also showed a very small right-sided renal stone but there is no significant blood in the urine. Plan Plan to check a pelvic ultrasound which better delineates pelvic cysts if done transvaginally better than CT, get the results of the CA 125 and at that level is significantly elevated and would recommend [facility] oncology consultation prior to leaving the hospital so they can arrange outpatient visit and therapy, if the CA 125 is normal and the ultrasound the shows only one septation that is quite likely a benign ovarian cyst/cystadenoma that is just being discovered by the CT scan and because there is essentially no pain in the pelvis or findings on pelvic exam no cervical motion tenderness or pain this cyst almost certainly has no relationship to the back pain that she is describing. If the ultrasound has a more ominous appearance with multiple septations irregular in the configuration then also the [facility] oncology team should be consulted. Patient states that regardless she wants this taken out at some point but currently has no insurance and no [facility] doctor., Dr. Barriga is the [facility] backup doctor [place] and it may be that she would be able to see the patient in the office as an outpatient Admitting diagnosis: LEFT OVARIAN MASS, UTI Diagnosis: Ovarian cyst, back pain Severo Urbina II, MD Aug 30, 2017 20:30
--- NOTE | 2017-08-30 23:14 | RADRPT ---
EXAM DATE: 08/30/2017 10:55 PM EDT AGE/SEX: 42 years / Female INDICATIONS: Patient with left flank pain and abnormal CT demonstrating a large multiloculated cysti c mass anterior pelvis. CLINICAL DATA: This is the patient's initial encounter. Patient reports that signs and symptoms have been present for 1 day and indicates a pain score of 0/10. MEDICAL/SURGICAL HISTORY: . Glasses. Autoimmune hepatitis. Tonsillectomy. Cholecystectomy. T ubal ligation. Dilation and curettage. COMPARISON: [facility] [place], CT ABDOMEN & PELVIS W/O CONTRAST, 08/30/2017. . MEASUREMENTS: Uterus:__9.5 x 7.0 x 6.0 cm Endometrial Stripe:__14 mm Right Ovary:__ 3.9 x 3.5 x 3.0 cm Left Ovary:__ 8.3 x 7.8 x 6.7 cm FINDINGS: Uterus: Uterus is mildly prominent and diffusely heterogeneous. The endometrial stripe appears heter ogeneous as well. Endometrial Stripe: Heterogeneous. Right Ovary: The right ovary is normal in size with multiple small cystic structures the largest dionne sures up to 1.6 cm. Left Ovary: The left ovary is enlarged and contains a large cystic structure measuring up to 7.8 cm with an adjacent smaller complex cystic structure measuring 3 x 3.8 cm. There is a thick septation. T here is no abnormal color flow. Fluid: No free fluid. Other: CONCLUSION: 1. Enlarged left ovary with complex cystic mass. 2. The right ovary contains multiple follicular appearing cyst. 3. The uterus is heterogeneous. The endometrium is heterogeneous as well. Electronically signed by: Chuckie Doshi MD 08/30/2017 11:12 PM EDT
[2017-08-31] VITALS: BP 134/82; PULSE 75; RESP 18; TEMP 98.4; O2SAT 98
[2017-08-31] MEDS ORDERED: cefTRIAXone INJ 1,000 MG in SODIUM CHLORIDE 0.9% INJ 100 ML IV SCH (03:00)
[2017-08-31] MEDS: SODIUM CHLOR 0.9% 1000 ML INJ 1,000 ML IV SCH ×3 (03:03→15:34)
[2017-08-31] MEDS: MORPHINE SULFATE 4 MG/ML INJ IV PUSH PRN ×2 (03:12→07:47)
[2017-08-31 04:00] VITALS: BP 131/65; PULSE 77; RESP 18; TEMP 98.2; O2SAT 93
[2017-08-31] MEDS: HEPARIN SODIUM - SQ 10,000 UNITS/ML VIAL SQ SCH ×2 (06:06→15:21)
[2017-08-31] MEDS: PANTOPRAZOLE SOD 20 MG DELAYED RELEASE TAB PO SCH (07:47)
[2017-08-31] MEDS: SODIUM CHLORIDE 0.9% FLUSH 10 ML FLUSH IV FLUSH SCH (07:48)
[2017-08-31 08:00] VITALS: BP 134/70; PULSE 78; RESP 18; TEMP 97.8; O2SAT 95
[2017-08-31] MEDS ORDERED: NORC5TAB PO (08:54)
[2017-08-31] MEDS ORDERED: CIPR-9 PO (08:56)
[2017-08-31] MEDS ORDERED: KETOROLAC TROMETHAMINE 30 MG/ML (IVP) VIAL IV PUSH PRN (09:00)
[2017-08-31] MEDS ORDERED: ACETAMINOPHEN/HYDROcodone 325 MG/5 MG TAB PO PRN (09:00)
[2017-08-31] MEDS ORDERED: NALOXONE HCL 0.4 MG/ML AMP IV PUSH PRN (09:00)
[2017-08-31] MEDS ORDERED: ACETAMINOPHEN 325 MG TAB PO PRN (09:00)
--- NOTE | 2017-08-31 09:05 | HHI.PR ---
Subjective Remarks Complaining of left flank pain persistent. No symptoms of dysuria or frequency or urgency. Reports that previous visit in the ED she was given Flexeril and tramadol. She feels tramadol made her sleepy. Objective Vitals Vital Signs Date Time Temp Pulse Resp B/P (MAP) Pulse Ox O2 Delivery O2 Flow Rate FiO2 08/31/17 04:00 98.2 77 18 131/65 (87) 93 08/31/17 00:00 98.4 75 18 134/82 (99) 98 08/31/17 00:00 18 08/30/17 20:00 98.3 66 20 139/73 (95) 98 08/30/17 18:21 18 08/30/17 16:00 98.1 69 18 149/85 (106) 99 08/30/17 14:26 98.0 861 16 120/71 (87) 98 08/30/17 13:00 98.1 76 17 130/71 (90) 99 Room Air 08/30/17 11:00 97.9 68 16 124/68 (86) Room Air 08/30/17 09:30 98.0 72 17 108/67 (81) 99 Room Air I/O 08/30/17 08/30/17 08/30/17 08/31/17 08/31/17 08/31/17 07:00 15:00 23:00 07:00 15:00 23:00 Intake Total 1100 ml 600 ml 100 ml 2480 ml Balance 1100 ml 600 ml 100 ml 2480 ml Intake Oral 600 ml 380 ml IV Total 1100 ml 100 ml 2100 ml # Voids 1 1 3 # Bowel Movements 0 Result Diagram: 08/30/17 0120 08/30/17 0120 Other Results CA 125 pending Imaging Last Impressions Abdomen/Pelvis CT 08/30/17 0109 Signed Impressions: CONCLUSION: 1. 8.8 x 7.8 cm multiloculated cystic mass in the anterior (I suspect arising from the left. Potential includes ovarian cystadenoma versus cystadenocarcinoma . 2. Small stone lower pole left kidney. 3. Status post cholecystectomy otherwise unremarkable CT abdomen and pelvis Pelvis Ultrasound 08/30/17 0000 Signed Impressions: CONCLUSION: 1. Enlarged left ovary with complex cystic mass. 2. The right ovary contains multiple follicular appearing cyst. 3. The uterus is heterogeneous. The endometrium is heterogeneous as well. Objective Remarks GENERAL: This is a well-nourished, obese well-developed patient, in no apparent distress. CARDIOVASCULAR: Regular rate and rhythm without murmurs, gallops, or rubs. RESPIRATORY: Clear to auscultation. Breath sounds equal bilaterally. No wheezes , rales, or rhonchi. GASTROINTESTINAL: Abdomen soft, left flank and left lower abdominal tenderness on palpation , no CVA tenderness, no rebound guarding, nondistended. Normal active bowel sounds MUSCULOSKELETAL: Extremities without clubbing, cyanosis, trace edema NEURO: Alert & Oriented x4 to person, place, time, situation. Moves all ext x4 A/P Assessment and Plan 1. Pelvic mass found on CT CT of the abdomen and pelvis significant for an 8 x 7 cm multiloculated cystic mass likely arising from the left ovary Differential diagnosis includes ovarian cystadenoma versus cystadenocarcinoma Medical oncology, Dr. Holland consulted, appreciate recommendations Obtain a CT-guided biopsy of the mass today along with CA 125 for further evaluation. After completion of the tests will discharge home with outpatient follow-up with Dr. Holland [place] will be written for pain and patient was counseled him to take it at night if Tylenol ibuprofen did not relieve the pain. Patient counseled on safe use of [place] and its side effects today. 2. Urinary tract infection UA consistent with UTI Urine culture pending Rocephin will be switched to p.o. Cipro, follow-up with final urine culture results 3. Microcytic anemia likely due to history of menorrhagia Unclear etiology until workup completed Monitor CBC Iron studies pending, suspect iron deficiency anemiairon supplements given Heparin for DVT prophylaxis Discharge Planning Discharge patient to home Condition on discharge: Improved Regular Diet as tolerated [employer] activity Rx written: [place] 5 1 every 6 hours as needed for pain #12 Cipro 500 mg p.o. twice daily #6 Follow-up with primary care physician Follow-up with Dr. Holland in 1 week Judy Branham MD Aug 31, 2017 09:05
[2017-08-31] MEDS ORDERED: GABAPENTIN 300 MG CAP PO ONE (09:30)
[2017-08-31] MEDS ORDERED: CIPROFLOXACIN 500 MG TAB PO SCH (09:30)
[2017-08-31] MEDS ORDERED: ONDANSETRON ODT 4 MG TAB PO PRN (11:00)
[2017-08-31 12:00] VITALS: BP 134/63; PULSE 87; RESP 18; TEMP 97.8; O2SAT 94
[2017-08-31] MEDS ORDERED: FERR325T18 PO (13:17)
--- NOTE | 2017-08-31 13:20 | PD.ONC.PN ---
Subjective Subjective Remarks Afebrile overnight. Patient resting in room in nad. seen at 1030AM. states she still has pain in her pelvis, but is feeling more relaxed with the morphine. no other complaints. Objective Data Date Time Temp Pulse Resp B/P (MAP) Pulse Ox O2 Delivery O2 Flow Rate FiO2 08/31/17 08:00 97.8 78 18 134/70 (91) 95 08/31/17 04:00 98.2 77 18 131/65 (87) 93 08/31/17 00:00 98.4 75 18 134/82 (99) 98 08/31/17 00:00 18 08/30/17 20:00 98.3 66 20 139/73 (95) 98 08/30/17 18:21 18 08/30/17 16:00 98.1 69 18 149/85 (106) 99 08/30/17 14:26 98.0 861 16 120/71 (87) 98 08/31/17 08/31/17 08/31/17 07:00 15:00 23:00 Intake Total 2480 ml Balance 2480 ml Result Diagram: 08/30/17 0120 08/30/17 0120 Culture Results Microbiology Date/Time Source Procedure Growth Status 08/30/17 01:45 Urine Random Urine Urine Culture - Final 50-100,000 CFU/ML MIXED GRAM POSITIVE... Complete Administered Medications Medications (Trade) Dose Ordered Sig/Cate Route PRN Reason Start Time Stop Time Status Last Admin Dose Admin Sodium Chloride 1,000 ml @ 100 mls/hr Q10H IV 08/30/17 03:01 08/31/17 06:06 Sodium Chloride (NS Flush) 2 ml BID IV FLUSH 08/30/17 09:00 08/31/17 07:48 Acetaminophen (Tylenol) 650 mg Q4H PRN PO TEMP > 100.4 08/30/17 03:15 08/30/17 17:21 Morphine Sulfate (Morphine Inj) 4 mg Q3H PRN IV PUSH BREAKTHROUGH PAIN 08/30/17 06:15 08/31/17 07:47 Heparin Sodium (Porcine) (Heparin Inj) 5,000 units Q8HR SQ 08/30/17 06:00 08/31/17 06:06 Iron Sucrose 100 mg/Sodium Chloride 105 ml @ 105 mls/hr Q24H IV 08/30/17 16:00 09/01/17 16:59 08/30/17 17:15 Pantoprazole Sodium (Protonix) 20 mg DAILY PO 08/30/17 17:30 08/31/17 07:47 Ketorolac Tromethamine (Toradol Inj) 30 mg Q6H PRN IV PUSH Pain 6-10;if unable to take PO 08/31/17 09:00 09/04/17 01:00 08/31/17 11:26 Ciprofloxacin (Cipro) 500 mg Q12HR PO 08/31/17 09:30 08/31/17 11:25 Ondansetron HCl (Zofran Odt) 4 mg Q4H PRN PO nausea 08/31/17 11:00 08/31/17 11:25 Objective Remarks GENERAL: Pleasant middle aged female, sitting up in bed in nad. SKIN: Warm and dry. HEAD: Normocephalic. EYES: No injection or drainage. NECK: Supple, trachea midline. CARDIOVASCULAR: Regular rate and rhythm. RESPIRATORY: Breath sounds equal bilaterally. No accessory muscle use. GASTROINTESTINAL: Abdomen obese, nontender to palpation during my exam. EXTREMITIES: No cyanosis NEUROLOGICAL: awake and alert. normal speech. moving extremities. Assessment/Plan Assessment 42y/o female with multiloculate cystic mass in anterior left ovary + iron deficiency anemia. h/o Left ovarian cystic mass. Microcytic anemia. Iron deficiency. Obesity. h.o Bilateral tubal ligation. Plan 1. left ovarian multiloculated cystic mass. --concerning for an ovarian cystadenoma versus cyst adenocarcinoma. --08.31: discussed with Dr. Garth Terrazas with radiology who advised we not obtain biopsy via CT guided route as that could potentially spread cancer if the mass is diagnosed as such. I discussed this with the patient and have requested the upper caser help us to arrange follow up with [facility] onc[facility] as the patient will likely need surgery to remove mass and currently has no insurance. she will need help with patient assistance. --fs faxed to new patient referrals for follow up with [facility] oncology STAT. 2. iron deficiency anemia: s/p parenteral iron inpatient. may need further iron infusions outpatient. Coby Meyers Aug 31, 2017 13:20
[2017-08-31 13:56] LABS: AUTOMATED NEUTROPHIL # 4.3 TH/MM3 (1.8-7.7); BASOPHIL % 0.3 % (0.0-2.0); EOSINOPHIL # 0.2 TH/MM3 (0-0.4); EOSINOPHIL % 2.7 % (0.0-4.0); HEMATOCRIT 29.7 % (35.0-46.0); HEMOGLOBIN 9.1 GM/DL (11.6-15.3); LYMPH % 21.3 % (9.0-44.0); LYMPHOCYTE # 1.3 TH/MM3 (1.0-4.8); MEAN CELL VOLUME 66.5 FL (80.0-100.0); MEAN CORPUSCULAR HEMOGLOBIN 20.3 PG (27.0-34.0); MEAN CORPUSCULAR HGB CONC 30.5 % (32.0-36.0); MEAN PLATELET VOLUME 7.5 FL (7.0-11.0); MONO % 5.3 % (0.0-8.0); MONOCYTE # 0.3 TH/MM3 (0-0.9); NEUT % 70.4 % (16.0-70.0); PLATELET COUNT 324 TH/MM3 (150-450); RED BLOOD COUNT 4.47 MIL/MM3 (4.00-5.30); RED CELL DISTRIBUTION WIDTH 21.2 % (11.6-17.2); WHITE BLOOD COUNT 6.1 TH/MM3 (4.0-11.0)
[2017-08-31 14:18] LABS: BICARBONATE 23.8 MEQ/L (21.0-32.0); BLOOD UREA NITROGEN 8 MG/DL (7-18); CALCIUM 8.5 MG/DL (8.5-10.1); CHLORIDE 108 MEQ/L (98-107); CREATININE 0.61 MG/DL (0.50-1.00); GLOMERULAR FILTRATION RATE 108 ML/MIN (>89); GLUCOSE,RANDOM 105 MG/DL (74-106); SODIUM (NA) 140 MEQ/L (136-145)
[2017-08-31] MEDS: IRON SUCROSE INJ 100 MG in SODIUM CHLORIDE 0.9% INJ 100 ML IV SCH (15:21)
[2017-08-31 16:00] VITALS: BP 121/58; PULSE 61; RESP 18; TEMP 97.9; O2SAT 97
== END 2017-08-31 19:01 | disposition home or self-care (01) ==
LOC: NEPC 23:40 → NEDA 08-30 03:19 → NEDH 08-30 08:02 → N06B 08-30 15:00
PROVIDERS: ADMIT Hospitalist; ATTEND Hospitalist
DX: R19.00 Intra-abdominal and pelvic swelling, mass and lump, unspecified site (principal); N39.0 Urinary tract infection, site not specified; D50.9 Iron deficiency anemia, unspecified; N20.0 Calculus of kidney; N83.8 Other noninflammatory disorders of ovary, fallopian tube and broad ligament; K75.4 Autoimmune hepatitis; N92.0 Excessive and frequent menstruation with regular cycle; E66.9 Obesity, unspecified; Z90.49 Acquired absence of other specified parts of digestive tract
CPT/HCPCS: 74176; 76830; 76856; 80048; 80053; 81001; 82272; 82607; 82728; 83540; 83550; 83690; 84702; 84703; 85025; 86304; 87086; 96361; 96365; 96366; 96367; 96372; 96375; 96376; 99285; G0378; J0696; J1644; J1756; J1885; J2270; J7030

== ENCOUNTER 2017-11-08 05:29 | Observation (INO) ==
[2017-11-08] MEDS ORDERED: Heparin - SQ 10,000 UNITS/ML Vial SQ SCH (06:15)
[2017-11-08] MEDS ORDERED: Chlorhexidine Gluconate 2% 1 Pack (2 Cloths) TOPICAL SCH (06:15)
[2017-11-08] MEDS ORDERED: Metoprolol Tartrate 25 MG Tablet PO SCH (06:15)
[2017-11-08] MEDS ORDERED: ceFAZolin 2 GM Premix Inj 2 GM/100 ML BAG IV.SIG SCH (07:00)
[2017-11-08] MEDS ORDERED: Sodium Chlor 0.9% Inj 500 ML IV.SIG SCH (07:00)
[2017-11-08] MEDS ORDERED: Lidocaine 1%/Epinephrine 1:100,000 Inj 20 ML Vial ONE (07:12)
[2017-11-08] MEDS ORDERED: LORazepam 0.5 MG Tablet PO PRN (10:26)
[2017-11-08] MEDS ORDERED: *morphine SULFATE 4 MG/ML PERIprocedure ONLY ONE ×2 (10:48→13:33)
[2017-11-08] MEDS ORDERED: fentaNYL Citrate Inj 100 MCG/2 ML Ampul ONE (10:50)
[2017-11-08] MEDS: KCL 20 mEq/D5W/NaCl 0.45% Inj 1,000 ML IV.CONT SCH ×2 (11:40→19:45)
[2017-11-08] MEDS ORDERED: Lidocaine PF 1% Inj 5 ML Syringe INFILTRATN ONE (12:00)
[2017-11-08] MEDS ORDERED: Neostigmine Inj 5 MG/5 ML Syringe IV.PUSH ONE (12:00)
[2017-11-08] MEDS ORDERED: Glycopyrrolate Inj 1 MG/5 ML Syringe IV.PUSH ONE (12:00)
[2017-11-08] MEDS ORDERED: Ketorolac Inj 30 MG/ML (IVP) Vial IV.PUSH ONE (12:00)
[2017-11-08] MEDS ORDERED: Phenylephrine/NS 1000 MCG/10ML Syringe IV.PUSH ONE (12:00)
--- NOTE | 2017-11-08 12:47 | MP ---
cc: Tessie Morris MD, Ruby Anne E MD DATE OF OPERATION: 11/08/2017 DATE OF PROCEDURE: 11/08/2017 PREOPERATIVE DIAGNOSES: 1. Pelvic mass. 2. Intermittent torsion. POSTOPERATIVE DIAGNOSES: 1. Left ovarian cystadenoma. 2. Intermittent torsion. PROCEDURE: Robotic-assisted laparoscopic left salpingo-oophorectomy (with resection of 12 cm mass). SURGEON: Belen Morris MD TEST CELL TECHNICIAN: Kerri assistant baseball coach. ANESTHESIA: General endotracheal anesthesia. ESTIMATED BLOOD LOSS: 50 mL. IV FLUIDS: 2000 mL. URINE OUTPUT: 500 mL. HISTORY AND INDICATIONS: A 42-year-old female recently presented to the emergency room with fairly acute onset of intense pain, found to have at least a 10 cm cystic mass thought to be of probable ovarian origin. Her pain resolved. She was seen by us in the [facility] oncology office. She was counseled regarding these findings. It is a smoothed walled cystic mass. It was felt it was probably intermittently torsing. It was felt that, given the size of the mass, it is improbable that it would resolve and we discussed options. She is in favor of surgical resection with conservative surgery, if possible. She is seen again in the preoperative holding area where findings are again reviewed, the plan of care was discussed. She confirms that she is in favor of conservative management with the removal of the mass and the affected tube and ovary, but if that is benign she does not want a hysterectomy and does not want the other tube or ovary removed. She understands, however, in the setting of certain malignancies that full hysterectomy and bilateral salpingo-oophorectomy with staging biopsies are recommended and she agrees in the setting of malignancy for the more extensive surgery. FINDINGS: The left ovary is enlarged to approximately 12 cm, smooth walled, predominantly cystic with an area of peripheral multiloculated cysts. The capsule appears intact. It is freely mobile with no significant adhesions, suggesting its tendency toward intermittent torsion. The tubes have been tied bilaterally. The right ovary appears normal. The uterus is enlarged, it sounds to 14 cm and there is some symmetrical enlargement suggesting possible adenomyosis. There are also some changes suggestive of leiomyomas. There are no peritoneal implants, no appreciable adenopathy. 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 STATEMENT OF COMPLEXITY/MODIFIER: The complexity of this case was increased due to body habitus with a body mass index greater than 40 and modifier should be applied accordingly. DESCRIPTION OF PROCEDURE: She was taken to the operating room and placed in dorsal lithotomy position after general endotracheal anesthesia was administered. A timeout was undertaken. She was identified by site recognition and hospital ID bracelet and the proposed procedure was reviewed and confirmed. She was carefully positioned in padded Gabriel stirrups. Her arms were padded and secured to the sides. She was further secured to the operating table with egg crate padding and tape in a cross chest over the shoulder fashion. All sites noted to be properly aligned with no malalignment or pressure points. She was prepped in sterile fashion and draped below the waist, placed in high lithotomy position. The cervix was grasped. Uterine cavity sounded. Cervix dilated. A large VCare manipulator was inserted and secured in the usual fashion. Rincon catheter placed in the bladder. She was returned to low lithotomy position. Change of sterile gloves was undertaken. An orogastric tube was in the stomach on suction and we completed draping in anticipation of laparoscopy. With manual elevation of the abdominal wall under direct laparoscopic visualization a 5 mm cannula placed in the left upper quadrant. An atraumatic entry was confirmed. Carbon dioxide gas was insufflated, 8 mm cannulas were placed in the right upper quadrant and left lateral quadrant and a 12 mm cannula placed in the midline above the umbilicus. She was placed in Trendelenburg position. Peritoneal washings were obtained for cytology. The anatomy was explored with findings as described above. The small bowel was folded back on its mesenteric root and 3 Ray-Rahul sponges were placed around the root of the small bowel mesentery. The robotic system was brought into the operative field, attached in the usual fashion. Monopolar scissors, fenestrated bipolar forceps, and ProGrasp manipulator were placed in arms #1, 2, and 3 respectively and I took my place at the surgeon's console. Retroperitoneal dissection was carried out along the left pelvic sidewall lateral and parallel to the gonadal vessels dissect. Dissection was continued posteriorly until the left ureter was identified. The left infundibulopelvic ligament was isolated. The intervening peritoneum was opened. An adhesive band to the posterior cul-de-sac was cauterized and transected and the left uteroovarian ligament was isolated and cauterized. The gonadal vessels were isolated above the level of the pelvic brim where they were thoroughly cauterized and transected and then the left uteroovarian ligament was transected, thereby completely the mass. Sites were irrigated and noted to be hemostatic. Given the benign appearance and our agreed upon objectives, it was felt that all reasonable surgical objectives had been completed pending frozen section analysis. Accordingly, robotic instruments were removed. The robotic system was disengaged from the operative field and I reentered bedside under sterile condition. Each of the 3 Ray-Rahul sponges that had been placed were removed through the central cannula, inspected and noted to be removed in their entirety. Under laparoscopic visualization, the fascia was extended from the central incision to allow specimen delivery and a 15 mm cannula was introduced. A 15 cm EndoCatch bag was used to capture the mass and bring it up to the abdominal wall. The cystic component was drained by disrupting the capsule and it was drained in a controlled fashion until the size of the mass was reduced. Then, using Maria D clamps and countertraction, the remainder of the specimen was delivered, contained within the bag, and removed and sent for frozen section analysis. Under laparoscopic visualization, the fascial defect in the central area was closed with interrupted 0 Vicryl sutures using a needle fascial closure apparatus, sutures were tied securely which rendered the fascia completely airtight and hemostatic. The remaining cannulas were withdrawn. Carbon dioxide gas was removed from the peritoneal cavity, 3-0 Vicryl subcutaneous, 3-0 Vicryl subcuticular, and Steri-Strips were used to close the skin incisions. She was returned to dorsal lithotomy position. Pelvic exam allowed removal of the VCare manipulator. The tenaculum and suture sites were rendered hemostatic with topical Monsel's solution. There were no remaining foreign objects in the vagina. Sites were hemostatic. Final counts were correct. She was returned to dorsal supine position when I left operating room to precede her to the postanesthesia care unit and to speak to her significant other in the family waiting area. MD REGINA Singh/alayna , 11:08 AM , 11:21 AM
[2017-11-08] MEDS: Ketorolac Inj 30 MG/ML (IVP) Vial IV.PUSH SCH ×3 (16:55→23:54)
[2017-11-09] MEDS: KCL 20 mEq/D5W/NaCl 0.45% Inj 1,000 ML IV.CONT SCH (04:47)
[2017-11-09] MEDS: Ketorolac Inj 30 MG/ML (IVP) Vial IV.PUSH SCH (06:22)
[2017-11-09 07:33] LABS: Baso % (Auto) 0.2 % (0.0-2.0); Eos % (Auto) 0.2 % (0.0-4.0); Hematocrit 29.2 % (35.0-46.0); Hemoglobin 9.3 gm/dL (11.6-15.3); Lymph # (Auto) 1.4 th/mm3 (1.0-4.8); Lymph % (Auto) 16.2 % (9.0-44.0); Mean Corpuscular HGB Conc 31.9 % (32.0-36.0); Mean Corpuscular Hemoglobin 22.3 pg (27.0-34.0); Mean Corpuscular Volume 69.7 fL (80.0-100.0); Mean Platelet Volume 7.7 fL (7.0-11.0); Mono # (Auto) 0.8 th/mm3 (0.0-0.9); Mono % (Auto) 8.7 % (0.0-8.0); Neut # (Auto) 6.6 th/mm3 (1.8-7.7); Neut % (Auto) 74.7 % (16.0-70.0); Platelet Count 294 th/mm3 (150-450); Red Blood Count 4.19 mil/mm3 (4.00-5.30); Red Cell Distribution Width 19.9 % (11.6-17.2); White Blood Count 8.8 th/mm3 (4.0-11.0)
[2017-11-09 08:05] LABS: Anion Gap 9 meq/L (5-15); Blood Urea Nitrogen 6 mg/dL (7-18); Calcium 8.4 mg/dL (8.5-10.1); Carbon Dioxide 23.9 meq/L (21.0-32.0); Chloride 108 meq/L (98-107); Glomerular Filtration Rate Greater Than 89 mL/min (>89); Glucose,Random 137 mg/dL (74-106); Sodium 141 meq/L (136-145)
[2017-11-09 08:53] VITALS: BP 126/68; PULSE 55; RESP 14; TEMP 98.2; O2SAT 99
--- NOTE | 2017-11-11 21:18 | MD ---
cc: Tessie Morris MD,Lesli Hallman MD DATE OF DISCHARGE: 11/09/2017 PROCEDURE: On 11/08/2017, robotic-assisted laparoscopic resection of 12 cm pelvic mass (left salpingo-oophorectomy). HOSPITAL COURSE: She did well in her early postop period. Adequate pain control, hemodynamically stable, tolerating oral intake. Rincon catheter removed. Pending voiding. Ins and outs 6060/2425. Labs pending. OBJECTIVE: VITAL SIGNS: Afebrile, pulse 68 71, respirations 16-18, blood pressure 113-125/60-65, O2 saturations greater than or equal to 95%. GENERAL: Alert and oriented x3. LUNGS: Clear. CARDIOVASCULAR: Regular rate and rhythm. ABDOMEN: Soft. Incisions clean and dry. GYNECOLOGIC: No bleeding. ASSESSMENT: Postoperative day number one, doing well in the early postop period. Findings at the time of surgery and preliminary pathology reviewed, activities and restrictions were discussed. Questions were asked and answered. She expressed good understanding. PLAN: Anticipate she will meet criteria for discharge to home. Prescription for Percocet for pain. She is on no previous prescription medications. She is to contact our office to schedule a followup in 2 weeks or to call should she have any questions or problems between now and the time of scheduled followup. MD REGINA Singh/mandie , 07:39 AM , 07:44 AM
== END 2017-11-09 10:48 | disposition home or self-care (01) ==
LOC: HSDI 05:29 → HSDC 05:29 → HCIS 15:12
PROVIDERS: ADMIT Obstetrics & Gynecology Gynecologic Oncology; ATTEND Obstetrics & Gynecology Gynecologic Oncology

== ENCOUNTER 2018-03-13 10:20 | Inpatient (IN) ==
--- NOTE | 2018-03-13 11:13 | ED ---
HPI General Chief complaint: Psychiatric Symptoms Stated complaint: Psych Eval/DBPD Time Seen by Provider: 03/13/18 11:08 History of Present Illness HPI narrative: 42-year-old female with a history of bipolar disorder presents to the emergency department under Prather act for homicidal ideations. Per the Prather act report the patient is experiencing homicidal ideations toward her boyfriend's ex. The patient states that yesterday she almost went over to her boyfriend's ex-girlfriend's house and would have killed her. She states that she called the police today because she knows that she is out of control and needs help. She states that she feels very angry in general. She denies suicidal ideations. States she was drinking alcohol yesterday. Denies drug use. She is not currently taking anything for her bipolar disorder. She is complaining of muscle spasm in her right mid to upper back. States that this is a chronic intermittent problem that she has had. Denies any injury or trauma to her back. No other complaints or concerns at this time. Related Data Home Medications Medication Instructions Recorded Confirmed cyclobenzaprine 10 mg PO TID PRN 03/13/18 03/13/18 ferrous sulfate [Slow Fe] 142 mg PO DAILY 03/13/18 03/13/18 ibuprofen 400 mg PO Q4-6H PRN 03/13/18 03/13/18 Allergies Allergy/AdvReac Type Severity Reaction Status Date / Time No Known Allergies Allergy Verified 03/13/18 10:31 Review of Systems ROS: all other systems reviewed are negative [facility] Social History Social History Substance History: No History of Abuse Smoking Status: Refused to answer How Often Do You Have a Drink Containing Alcohol: Monthly or less Exam Narrative Exam Narrative: GENERAL: Well-nourished and well-developed female patient in no acute distress who is nontoxic appearing. SKIN: Warm and dry. HEAD: Normocephalic and atraumatic. EYES: No injection, drainage, or hyphema noted. PERRLA. EOMI. ENT: No nasal drainage noted. Oropharynx is clear. NECK: Supple and the trachea is midline. CARDIOVASCULAR: Regular rate and rhythm. RESPIRATORY: Breath sounds are equal bilaterally with no accessory muscle use, wheezing, rhonchi, or crackles. GASTROINTESTINAL: Abdomen is soft, non-tender, and nondistended. MUSCULOSKELETAL: No obvious deformities, swelling, cyanosis, or ecchymosis is present throughout the upper and lower extremities. Patient has full range of motion without any signs of neurovascular compromise. Distal pulses are 2+ throughout. BACK: Nontender without any obvious deformities, bony point tenderness, or crepitus noted throughout the thoracic and lumbar vertebrae. NEUROLOGICAL: Awake, alert, and oriented. Normal speech and gait. Cranial nerves are grossly intact. Course Initial Documented Vital Signs Temperature 98.5 F 03/13/18 10:32 Pulse Rate 85 03/13/18 10:32 Respiratory Rate 17 03/13/18 10:32 Blood Pressure 145/81 H 03/13/18 10:32 Pulse Oximetry 97 03/13/18 10:32 Last Documented Vital Signs Temperature 97.1 F L 03/13/18 13:00 Pulse Rate 89 03/13/18 13:00 Respiratory Rate 16 03/13/18 13:00 Blood Pressure 168/84 H 03/13/18 13:00 Pulse Oximetry 99 03/13/18 13:00 Medical Decision Making MDM Narrative Medical decision making narrative: Patient presents under a Prather act. Physical examination and vital signs are essentially unremarkable. Patient does complain of muscle spasm to right mid-upper back. Psych screen has been ordered. The laboratory results are unremarkable with the exception of mild anemia, consistent with her previous history. The patient is medically cleared for psychiatric evaluation and disposition. Medical Screen Exam Complete: Yes Emergency Medical Condition: Yes Differential Diagnosis Differential Diagnosis: Differential: Depression versus adjustment reaction versus anxiety versus PTSD versus psychosis NOS versus mood disorder NOS versus substance induced mood disorder versus ODD versus adjustment reaction versus schizophrenia versus bipolar disorder versus schizoaffective versus electrolyte abnormality versus dementia versus malingering. Lab Data Result diagrams: 03/13/18 10:10 03/13/18 10:10 POC Results POC Urine Results Negative Lab Results 03/13/18 03/13/18 03/13/18 Range/Units 10:10 10:10 12:25 WBC 6.6 (4.0-11.0) th/mm3 RBC 4.59 (4.00-5.30) mil/mm3 Hgb 11.2 L (11.6-15.3) gm/dL Hct 35.0 (35.0-46.0) % MCV 76.2 L (80.0-100.0) fL MCH 24.3 L (27.0-34.0) pg MCHC 31.9 L (32.0-36.0) % RDW 21.0 H (11.6-17.2) % Plt Count 303 (150-450) th/mm3 MPV 7.8 (7.0-11.0) fL Neut % (Auto) 74.1 H (16.0-70.0) % Lymph % (Auto) 17.7 (9.0-44.0) % Antelope % (Auto) 6.7 (0.0-8.0) % Eos % (Auto) 1.1 (0.0-4.0) % Baso % (Auto) 0.4 (0.0-2.0) % Neut # (Auto) 4.9 (1.8-7.7) th/mm3 Lymph # (Auto) 1.2 (1.0-4.8) th/mm3 Antelope # (Auto) 0.4 (0.0-0.9) th/mm3 Eos # (Auto) 0.1 (0.0-0.4) th/mm3 Baso # (Auto) 0.0 (0.0-0.2) th/mm3 WBC Differential . Differential Comment Auto diff final Sodium 139 (136-145) meq/L Potassium 3.5 (3.5-5.1) meq/L Chloride 107 (98-107) meq/L Carbon Dioxide 23.7 (21.0-32.0) meq/L Anion Gap 8 (5-15) meq/L BUN 5 L (7-18) mg/dL Creatinine 0.45 L (0.50-1.00) mg/dL Estimated GFR Greater than 89 (>89) mL/min Random Glucose 103 (74-106) mg/dL Calcium 8.5 (8.5-10.1) mg/dL Magnesium 2.1 (1.5-2.5) mg/dL Total Bilirubin 0.3 (0.2-1.0) mg/dL AST 29 (15-37) U/L ALT 29 (10-53) U/L Alkaline Phosphatase 84 (45-117) U/L Total Protein 7.7 (6.4-8.2) g/dL Albumin 3.7 (3.4-5.0) g/dL TSH 1.210 (0.358-3.740) uIU/mL Urine Color (Yellw/Straw) Urine Clarity (Clear) Urine pH (5.0-8.5) Ur Specific [place] (1.002-1.035) Urine Protein (Neg-Trace) mg/dL Urine Glucose (UA) (Negative) mg/dL Urine Ketones (Negative) mg/dL Urine Occult Blood (Negative) Urine Nitrate (Negative) Urine Bilirubin (Negative) Urine Urobilinogen (Less than 2) mg/dL Ur Leukocyte Esterase (Negative) Urine RBC (0-3) /hpf Urine WBC (0-5) /hpf Ur Squamous Epith Cells (0-5) /hpf Urine Bacteria (None) /hpf Urine Mucus (Occasional) /lpf Micro UA Comment Ur Microscopic Review Urine Culture Comments Urine Opiates Screen Neg (Neg) Ur Barbiturates Screen Neg (Neg) Ur Amphetamines Screen Neg (Neg) U Benzodiazepines Scrn Neg (Neg) Urine Cocaine Screen Neg (Neg) U Cannabinoids Screen Neg (Neg) Serum Alcohol Less than 3 (0-5) mg/dL 03/13/18 Range/Units 12:25 WBC (4.0-11.0) th/mm3 RBC (4.00-5.30) mil/mm3 Hgb (11.6-15.3) gm/dL Hct (35.0-46.0) % MCV (80.0-100.0) fL MCH (27.0-34.0) pg MCHC (32.0-36.0) % RDW (11.6-17.2) % Plt Count (150-450) th/mm3 MPV (7.0-11.0) fL Neut % (Auto) (16.0-70.0) % Lymph % (Auto) (9.0-44.0) % Antelope % (Auto) (0.0-8.0) % Eos % (Auto) (0.0-4.0) % Baso % (Auto) (0.0-2.0) % Neut # (Auto) (1.8-7.7) th/mm3 Lymph # (Auto) (1.0-4.8) th/mm3 Antelope # (Auto) (0.0-0.9) th/mm3 Eos # (Auto) (0.0-0.4) th/mm3 Baso # (Auto) (0.0-0.2) th/mm3 WBC Differential Differential Comment Sodium (136-145) meq/L Potassium (3.5-5.1) meq/L Chloride (98-107) meq/L Carbon Dioxide (21.0-32.0) meq/L Anion Gap (5-15) meq/L BUN (7-18) mg/dL Creatinine (0.50-1.00) mg/dL Estimated GFR (>89) mL/min Random Glucose (74-106) mg/dL Calcium (8.5-10.1) mg/dL Magnesium (1.5-2.5) mg/dL Total Bilirubin (0.2-1.0) mg/dL AST (15-37) U/L ALT (10-53) U/L Alkaline Phosphatase (45-117) U/L Total Protein (6.4-8.2) g/dL Albumin (3.4-5.0) g/dL TSH (0.358-3.740) uIU/mL Urine Color Yellow (Yellw/Straw) Urine Clarity Hazy H (Clear) Urine pH 5.0 (5.0-8.5) Ur Specific [place] 1.010 (1.002-1.035) Urine Protein Negative (Neg-Trace) mg/dL Urine Glucose (UA) Negative (Negative) mg/dL Urine Ketones 20 (Negative) mg/dL Urine Occult Blood Small H (Negative) Urine Nitrate Negative (Negative) Urine Bilirubin Negative (Negative) Urine Urobilinogen Less than 2 (Less than 2) mg/dL Ur Leukocyte Esterase Moderate H (Negative) Urine RBC Less than 1 (0-3) /hpf Urine WBC 3 (0-5) /hpf Ur Squamous Epith Cells 2 (0-5) /hpf Urine Bacteria Rare H (None) /hpf Urine Mucus Few H (Occasional) /lpf Micro UA Comment Culture not ind Ur Microscopic Review Not Reportable Urine Culture Comments Culture not ind Urine Opiates Screen (Neg) Ur Barbiturates Screen (Neg) Ur Amphetamines Screen (Neg) U Benzodiazepines Scrn (Neg) Urine Cocaine Screen (Neg) U Cannabinoids Screen (Neg) Serum Alcohol (0-5) mg/dL Discharge Plan Discharge Disposition Patient Disposition: Sign Out(ED Internal Use Only) Discharge Details Diagnosis: Bipolar disorder [facility] Team ED Provider: Magaly Prather ED Midlevel Provider: Lisbeth Hernandez Primary Care Provider: UNKNOWN, Rxs /Orders / Referrals /Forms Prescriptions: No Action cyclobenzaprine 10 mg Tablet 10 mg PO TID PRN (Reason: Pain) RF: 0 ibuprofen 400 mg Tablet 400 mg PO Q4-6H PRN (Reason: Pain, Moderate) RF: 0 ferrous sulfate [Slow Fe] 142 mg (45 mg iron) Tablet Extended Release 142 mg PO DAILY RF: 0 Discharge Interventions Interventions: Vital Signs Last Done: 03/13/18 13:00 Status ED Status: Medically Cleared
[2018-03-13 11:43] LABS: Alanine Aminotransferase 29 U/L (10-53); Albumin 3.7 g/dL (3.4-5.0); Anion Gap 8 meq/L (5-15); Aspartate Aminotransferase 29 U/L (15-37); Blood Urea Nitrogen 5 mg/dL (7-18); Calcium 8.5 mg/dL (8.5-10.1); Carbon Dioxide 23.7 meq/L (21.0-32.0); Chloride 107 meq/L (98-107); Glomerular Filtration Rate Greater Than 89 mL/min (>89); Glucose,Random 103 mg/dL (74-106); Magnesium 2.1 mg/dL (1.5-2.5); Potassium 3.5 meq/L (3.5-5.1); Sodium 139 meq/L (136-145)
[2018-03-13 11:53] LABS: Alkaline Phosphatase 84 U/L (45-117); Total Protein 7.7 g/dL (6.4-8.2)
[2018-03-13] MEDS ORDERED: LORazepam 1 MG Tablet PO ONE (11:53)
[2018-03-13 12:07] LABS: Baso % (Auto) 0.4 % (0.0-2.0); Eos # (Auto) 0.1 th/mm3 (0.0-0.4); Eos % (Auto) 1.1 % (0.0-4.0); Hemoglobin 11.2 gm/dL (11.6-15.3); Lymph # (Auto) 1.2 th/mm3 (1.0-4.8); Lymph % (Auto) 17.7 % (9.0-44.0); Mean Corpuscular HGB Conc 31.9 % (32.0-36.0); Mean Corpuscular Hemoglobin 24.3 pg (27.0-34.0); Mean Corpuscular Volume 76.2 fL (80.0-100.0); Mean Platelet Volume 7.8 fL (7.0-11.0); Mono # (Auto) 0.4 th/mm3 (0.0-0.9); Mono % (Auto) 6.7 % (0.0-8.0); Neut # (Auto) 4.9 th/mm3 (1.8-7.7); Neut % (Auto) 74.1 % (16.0-70.0); Platelet Count 303 th/mm3 (150-450); Red Blood Count 4.59 mil/mm3 (4.00-5.30); White Blood Count 6.6 th/mm3 (4.0-11.0)
[2018-03-13 13:05] LABS: Amphetamine Screen,Urine Neg (Neg); Barbiturate Screen,Urine Neg (Neg); Cannabinoid Screen,Urine Neg (Neg); Cocaine Screen,Urine Neg (Neg)
[2018-03-13 13:06] LABS: Opiate Screen,Urine Neg (Neg)
[2018-03-13 17:33] LABS: Bacteria,Urine Rare /hpf; Bilirubin,Urine Negative (Negative); Clarity,Urine Hazy (Clear); Color,Urine Yellow (Yellw/Straw); Glucose,Urine (UA) Negative (Negative); Leukocyte Esterase,Urine Moderate (Negative); Mucus,Urine Few /lpf (Occasional); Nitrite,Urine Negative (Negative); Squamous Epithelial Cell,Urine 2 /hpf (0-5)
[2018-03-13] MEDS ORDERED: Acetaminophen 325 MG Tablet PO PRN (21:57)
[2018-03-13] MEDS ORDERED: Aluminum/Magnesium/Simethacone Susp 30 ML UDC PO PRN (21:57)
[2018-03-14 07:44] LABS: Chol/HDL Ratio 2.48 Ratio; HDL Cholesterol 45.5 mg/dL (40.0-60.0)
[2018-03-14] MEDS: Senna/Docusate Sodium 8.6/50 MG Tablet PO SCH ×2 (08:28→20:54)
[2018-03-14 09:39] LABS: Hemoglobin A1c 5.6 % (4.3-6.0)
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
[2018-03-14] MEDS: Methocarbamol 500 MG Tablet PO PRN (16:17)
[2018-03-14] MEDS: clonazePAM 1 MG Tablet PO SCH (20:54)
[2018-03-14] MEDS ORDERED: Haloperidol Inj 5 MG/ML Ampul IM PRN (22:00)
[2018-03-14] MEDS ORDERED: clonazePAM 1 MG Tablet PO ONE (22:30)
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
[2018-03-15] MEDS: Senna/Docusate Sodium 8.6/50 MG Tablet PO SCH ×2 (10:09→21:36)
--- NOTE | 2018-03-15 12:03 | P.DIET ---
Nutritional Evaluation Type of nutrition evaluation: initial Nutrition consult regarding: Diet Evaluation Nutrition screening: Weight Loss > 10 lbs Screening comments: 03/14/18 WLS Objective - Diagnosis bipolar manic - Objective Body Mass Index: 47.8 % IBW: 227 (IBW = 130lb) Body Weight Used for Calculations: IBW Energy Needs - Lower Range (kCal/kg): 35 Energy Needs - Upper Range (kCal/kg): 40 Lower Limit kCal/kg (kCals): 2,065 Upper Limit kCal/kg (kCals): 2,360 Lower Limit Protein Factor (Grams per Kg): 1.2 Upper Limit Protein Factor (Grams per Kg): 1.4 Lower Protein Needs (Protein): 71 Upper Protein Needs (Protein): 83 Dietitian Reviewed in Medical Record: Current diet, Curent medications, Intake & Output, Labs, Medical history Diet Order: regular Oral Diet Intake Amount: Excellent 90%+ Objective Comments: PMH: bipolar, h/o sciatica Meds: haldol, risperdal Labs: cholesterol 113 Assessment Assessment: Pt currently at nutritional risk r/t reported unplanned wt loss. Per RN, pt lost wt from intentional dieting. Pt currently on a regular diet, consuming 100 % of most meals provided. RD will continue to monitor pts nutritional needs to assess for an additional PO supplement. Continue to monitor PO intake. Labs reviewed, dietitian following. Recommendations: 1. RD will continue to monitor pts nutritional needs to assess for an additional PO supplement 2. Continue to monitor PO intake 3. Dietitian following Dietitian to Monitor: Lab values, Intake & Output, Weight change, PO Intake, Medical course
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
--- NOTE | 2018-03-15 13:39 | P.CONPSY ---
Provisional Diagnosis Admission Date: March 13, 2018 20:56 [employer] Bipolar 1 disorder most recent episode mixed manic [employer] Sciatica, anemia History of Present Illness Service: Psychiatry Consult date: 03/15/18 Requesting Physician: Sal Cornejo Reason for Consult: Second opinion petition supporting Prather act Primary Care Provider: UNKNOWN History of Present Illness: Patient is a 42-year-old white female was admitted to Dr. cornejo's service, initially was made voluntarily however patient immediately requested to leave and signed in our OR. It is Dr. Cornejo's opinion the patient does not have the capacity to make that decision that she reinstituted a Prather act. Dr. Don has signed first opinion petition supporting Prather act. I reviewed Dr. Don's notes. Patient seen by me with nurse Herminia. Patient remains manic labile somewhat irritable with little insight into her disease. Acknowledging noncompliance with medication. Dr. Don has signed first opinion petition supporting Prather act. I agree. Patient meets criteria for involuntary psychiatric hospitalization of the Prather act thus I will cosign second opinion petition supporting Prather act Review of Systems All other systems reviewed negative except as stated in HPI PMFSH - History History Provided By: Patient - Medical History Medical History: Medical History (Last Reviewed 03/15/18 @ 13:27 by Dante Montoya MD) Bipolar disorder History of sciatica Left ovarian cyst Wears eyeglasses - Surgical History Surgical History: Surgical History (Last Reviewed 03/15/18 @ 13:27 by Dante Montoya MD) Hx of cholecystectomy Hx of dilation and curettage Hx of tonsillectomy Hx of tubal ligation - Social History I have reviewed the patient's Social History: Yes - Tobacco History Second Hand Smoke Exposure: No Tobacco Use In Past 30 Days: No Smoking Status: Former smoker Tobacco Type: Cigarettes - Alcohol History How Often Do You Have a Drink Containing Alcohol: Monthly or less - Substance Use History Substance History: No History of Abuse - Immunization History Tetanus Immunization: Unsure Hx Influenza Vaccine This Season: No Medications and Allergies Active Medications: Active Medications Al Hydrox/Mg Hydrox/Simethicone (Mag-Al Plus Susp Liq) 30 ml PO Q6H PRN PRN Reason: DYSPEPSIA Al Hydroxide/Mg Hydroxide (Milk Of Magnesia Liq) 30 ml PO DAILY PRN PRN Reason: CONSTIPATION Clonazepam (Klonopin) 1 mg PO HS [facility] Last Admin: 03/14/18 20:54 Dose: 1 mg Diphenhydramine HCl (Benadryl Inj) 50 mg IM HS PRN PRN Reason: INSOMNIA Diphenhydramine HCl (Benadryl) 50 mg PO HS PRN PRN Reason: INSOMNIA Haloperidol (Haldol) 2 mg PO Q6H PRN PRN Reason: AGRESSIVE BEHAVIOR Haloperidol Lactate (Haldol Inj) 2 mg IM Q6H PRN PRN Reason: IF PT REFUSES PO DOSE Last Admin: 03/14/18 22:34 Dose: 2 mg Hydroxyzine HCl (Atarax) 50 mg PO Q6H PRN PRN Reason: ANXIETY Ibuprofen (Motrin) 800 mg PO Q8H PRN PRN Reason: Acute Pain Methocarbamol (Robaxin) 1,000 mg PO Q8H PRN PRN Reason: MUSCLE PAIN Last Admin: 03/14/18 16:17 Dose: 1,000 mg Nicotine (Habitrol 21 Mg Patch.24 Hr) 1 patch T-DERMAL DAILY [facility] Last Admin: 03/15/18 10:09 Dose: 1 patch Risperidone (Risperdal) 1 mg PO BID [facility] Last Admin: 03/15/18 10:09 Dose: 1 mg Senna/Docusate Sodium (Yas-Colace) 1 tab PO BID [facility] Last Admin: 03/15/18 10:09 Dose: Not Given Allergies Allergy/AdvReac Type Severity Reaction Status Date / Time paper tape AdvReac Rash Uncoded 03/13/18 22:18 Home Medications Medication Instructions Recorded Confirmed Type cyclobenzaprine 10 mg PO TID PRN 03/13/18 03/13/18 History ferrous sulfate [Slow Fe] 142 mg PO DAILY 03/13/18 03/13/18 History ibuprofen 400 mg PO Q4-6H PRN 03/13/18 03/13/18 History Exam Vital signs: Intake & Output 03/14/18 03/15/18 03/15/18 18:59 06:59 18:59 Intake Total 360 / 360 Balance 360 / 360 Intake: Oral 360 / 360 Narrative: Patient seen lying on her bed and 2700 she is in no acute distress, patient no respiratory distress, no complaints of chest pain or abdominal pain. Patient moving all 4 extremities without difficulty Mental Status Examination Appearance: Disheveled Consciousness: Alert Orientation: x4 Motor Activity: Normal gait Speech: Unremarkable Language: Adequate Fund of Knowledge: Adequate Attention and Concentration: Adequate Memory: Unremarkable Mood: Irritable Affect: Other (Slight increased range and intensity) Thought Process & Associations: Intact, Logical, Goal directed Thought Content: Other (Fixed false beliefs about being mistreated) Hallucination Type: None Delusion Type: Paranoid Suicidal Ideation: No Suicidal Plan: No Suicidal Intention: No Homicidal Ideation: No (Patient does admit to having thoughts of harming Ms. Nellie Patiño but denies active thoughts.) Homicidal Plan: No Homicidal Intention: No Insight: Poor Judgment: Poor Assessment and Plan - Assessment (1) Bipolar disorder Code(s): F31.9 - Bipolar disorder, unspecified Status: Acute - Plan Plan: Patient does meet Prather criteria at this time thus I will cosign second opinion petition supporting Prather act Justification for Continued Inpatient Stay: At this time patient with decompensated placed in a lower level of care (1) Bipolar disorder Qualifiers: Active/Remission status: currently active Current bipolar episode type: manic Current episode severity: moderate Qualified Code(s): F31.12 - Bipolar disorder, current episode manic without psychotic features, moderate
[2018-03-15] MEDS ORDERED: Paliperidone Inj 234 MG/1.5 ML Syringe IM ONE (15:30)
[2018-03-15] MEDS: clonazePAM 1 MG Tablet PO SCH (21:36)
[2018-03-16] MEDS: Senna/Docusate Sodium 8.6/50 MG Tablet PO SCH ×2 (09:48→21:32)
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
[2018-03-16] MEDS: Methocarbamol 500 MG Tablet PO PRN (21:31)
[2018-03-16] MEDS: clonazePAM 1 MG Tablet PO SCH (21:32)
[2018-03-17] MEDS: Senna/Docusate Sodium 8.6/50 MG Tablet PO SCH ×2 (10:20→20:56)
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
[2018-03-17 16:01] VITALS: RESP 18
[2018-03-17] MEDS: clonazePAM 1 MG Tablet PO SCH (20:56)
[2018-03-18 06:24] VITALS: BP 121/75; PULSE 91; TEMP 98.6; O2SAT 97
[2018-03-18] MEDS ORDERED: Paliperidone Inj 156 MG/ML Syringe IM ONE (08:00)
[2018-03-18] MEDS: Senna/Docusate Sodium 8.6/50 MG Tablet PO SCH (08:30)
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
== END 2018-03-18 12:00 | disposition home or self-care (01) | DRG 885 ==
LOC: NEPJ 10:20 → NEDA 20:56 → H270 21:19 → NEDA 21:19 → H260 03-14 10:38 → H270 03-14 17:25
PROVIDERS: ADMIT Psychiatry & Neurology Psychiatry; ATTEND Psychiatry & Neurology Psychiatry
CPT/HCPCS: 80053; 80061; 80307; 81001; 83036; 83735; 84443; 84703; 85025; 90791; 99285; J1630; J2060; J2426; J3490